=== PATIENT | female | born 1945 | race Caucasian/White ===

== ENCOUNTER 2017-06-05 12:05 | Inpatient (IN) | payer OTHER ==
[~2017-06-05] VITALS: Ht 182.9 cm; Wt 85.7 kg
[~2017-06-05 12:05] MED LIST: ADVIN25/60 INH; ASPEC81 PO; CYCL10TA6 PO; DSWCR TOP; LOSA50TA6 PO; LPT40 PO; METF1000 PO; METO-217 PO; MULT-506 PO; NTRGSL4 SL; OXYC1TAB3 PO; PLV75 PO; RANI300T2 PO; SERT1TAB68 PO; VNTHFA/IN INH
[2017-06-05] MEDS ORDERED: HYDR-5688 PO (12:21)
[2017-06-05] MEDS ORDERED: DULO-24 PO (12:21)
[2017-06-05] MEDS ORDERED: ACET-749 PO (12:21)
[2017-06-05] MEDS ORDERED: SODIUM CHLORIDE 0.9% 1000ML 500 ML IV STA (12:48)
[2017-06-05] MEDS ORDERED: ONDANSETRON INJ 2 MG/ML 2 ML VIAL IV STA (12:48)
[2017-06-05] MEDS ORDERED: MoRPHine SULFATE 4 MG/ML 1 ML CARP\\VIAL IV PRN (13:00)
[2017-06-05 13:30] LABS: BASO % 0.1 %; BASO ABS # 0.01 K/uL (0-0.2); COMPLETE YES; EOS % 0.1 %; HEMATOCRIT 37.2 % (37-47); IG% 0.4 %; LYMPH % 8.9 %; LYMPH ABS # 0.95 K/uL (1.2-3.4); MEAN CELL VOLUME 83.4 fL (80-100); MEAN CORPUSCULAR HEMOGLOBIN 27.4 pg (25-34); MEAN CORPUSCULAR HGB CONC 32.8 g/dl (32-36); MONO % 6.9 %; NEUT % 83.6 %; PLATELET COUNT 194 K/uL (130-400); RED BLOOD COUNT 4.46 M/uL (4.2-5.4); WHITE BLOOD COUNT 10.73 K/uL (4.8-10.8)
--- NOTE | 2017-06-05 13:33 | DIAGNOSTIC IMAGING REPORT ---
PELVIS 1 OR 2 VIEW ROUTINE CLINICAL HISTORY: 71 years-old Female presenting with poss fx or dislocation--h/o replacement. TECHNIQUE: Single frontal view the pelvis was obtained. COMPARISON: 04/25/2017. FINDINGS: Bilateral total hip arthroplasties unchanged. No hardware complication. No fracture. No malalignment. Pubic symphysis and sacroiliac joints congruent. No acute osseous injury of the bony pelvis. Degenerative changes of the lower lumbar spine. IMPRESSION: Postsurgical changes of bilateral total hip arthroplasty. No hardware complication. No acute osseous injury. Electronically signed by: Marshall Parker M.D. 06/05/2017 1:32 PM Dictated Date/Time: 06/05/2017 1:30 PM
--- NOTE | 2017-06-05 13:34 | DIAGNOSTIC IMAGING REPORT ---
L HIP UNILATERAL 2 VIEWS CLINICAL HISTORY: 71 years-old Female presenting with hip pain, hist or replacement. TECHNIQUE: Frontal and frog-leg lateral views of the left hip were obtained. COMPARISON: 04/25/2017. FINDINGS: Left total hip arthroplasty. No malalignment. No periprosthetic fracture. Ossification along the greater tuberosity possibly postsurgical heterotopic ossification or degenerative in etiology related to the gluteus muscle complex. No radiographic evidence of a soft tissue abnormality. IMPRESSION: Left total hip arthroplasty. No hardware complication. No acute osseous injury. Electronically signed by: Marshall Parker M.D. 06/05/2017 1:33 PM Dictated Date/Time: 06/05/2017 1:32 PM
[2017-06-05 13:47] LABS: BUN/CREATININE RATIO 12.5 (10-20); CALCIUM 9.2 mg/dl (8.5-10.1); CREATININE 1.19 mg/dl (0.60-1.20); POTASSIUM 3.8 mmol/L (3.5-5.1)
[2017-06-05 13:50] LABS: ALB/GLOB RATIO 0.8 (0.9-2)
--- NOTE | 2017-06-05 14:09 | EMERGENCY ROOM VISIT NOTE ---
History Report prepared by Jaida: Honey Toney Under the Supervision of: Dr. Erickson Nelson M.D. 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 She notes that she dislocated her left hip April 24, 2017. She notes the pain began around May 12, 2017. She has seen her PCP and an orthopedic physician. She has a history of bilateral total hip replacements, though she notes that her left hip has dislocation several times s/p surgery. She reports the pain is in her left groin, which occasionally radiates below her left knee. 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 She currently rates her pain a 6/ 10 in severity. She notes a history of chronic back pain. She denies any falls. She has been taking her pain medication as prescribed though she notes her symptoms have not been relieved. She denies any history of lumbar hardware. She notes a history of vertebral disc surgery, though she is unsure of the details. She has a history of diabetes and CAD. She had a cardiac stent in 2016 and is currently taking blood thinners. 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 She notes left groin pain, radiating to below left knee. She denies any falls. Review of Systems See HPI for pertinent positives & negatives. A total of 10 systems reviewed and were otherwise negative. Past Medical & Surgical Medical Problems: (1) Allergic rhinitis (2) Anxiety (3) Arthritis of right hip (4) Asthma (5) CAD (coronary artery disease) (6) CKD (chronic kidney disease), stage III (7) DM type 2 (diabetes mellitus, type 2) (8) Dyslipidemia (9) Hip dislocation, left (10) HTN (hypertension) (11) Restless leg syndrome (12) UTI (urinary tract infection) Surgical Problems: (1) History of cardiac cath (2) S/p lumbar hemilaminectomy (3) S/P nasal septoplasty (4) S/p repair of radial fracture (5) Status post bilateral total hip replacement Family History Diabetes mellitus FATHER MOTHER BROTHER SISTER FH: HTN (hypertension) FH: cancer FH: heart disease BROTHER FH: kidney disease Social History Smoking Status: Former Smoker Alcohol Use: occasionally Drug Use: none Marital Status: Housing Status: lives with family Occupation Status: retired Current/Historical Medications Scheduled Aspirin (Aspirin EC Low Dose), 81 MG PO QAM Atorvastatin (Atorvastatin Calcium), 40 MG PO DAILY Clopidogrel Bisulfate (Clopidogrel), 75 MG PO QAM Duloxetine Hcl (Cymbalta), 20 MG PO DAILY Fluticasone Prop/Salmeterol (Advair Diskus 250/50 60 Dose), 1 PUFFS INH BID Losartan Potassium (Cozaar), 50 MG PO QAM Metformin Hcl (Glucophage), 1,000 MG PO QAM Metoprolol Succinate (Toprol Xl), 50 MG PO DAILY Multivitamin (Multivitamin), 1 TAB PO QAM Ranitidine Hcl (Zantac), 300 MG PO HS Scheduled PRN Acetaminophen/Codeine (Tylenol W/Codeine #3), 2 TAB PO Q4 PRN for Pain Albuterol Hfa (Ventolin Hfa), 2 PUFFS INH Q6H PRN for Cough Cyclobenzaprine Hcl (Flexeril), 10 MG PO TID PRN for muscle spasm Desonide 0.05% (Desowen 0.05%), 1 APPLN TOP DAILY PRN for RN Hydrocodone/Acetaminophen 5MG/325MG ([place]rington 5MG/325MG), 1 TABLET PO Q6 PRN for Pain Nitroglycerin (Nitrostat), 0.4 MG SL q5min PRN for Chest Pain Allergies Coded Allergies: Grass (Verified Allergy, Unknown, GRASS TREES, SOB AGGREVATES ASTHMA, ) Latex (Verified Allergy, Unknown, ITCHING FROM LATEX BALLOON PLACED IN NOSE FROM NOSEBLEED, 06/05/17) Atorvastatin (Unverified Adverse Reaction, Mild, JOINT AND MUSCLE ACHES, 06/05/17) Naloxone (Verified Adverse Reaction, Unknown, DIZZINESS, 06/05/17) Pentazocine (Unverified Adverse Reaction, Unknown, DIZZINESS, 06/05/17) Pioglitazone (Verified Adverse Reaction, Unknown, RAPID WEIGHT GAIN, 06/05) Physical Exam Vital Signs Date Time Temp Pulse Resp B/P (MAP) Pulse Ox O2 Delivery O2 Flow Rate FiO2 06/05/17 17:48 39.5 110 16 139/66 92 Room Air 06/05/17 16:51 38.6 10 16 128/62 97 Room Air 06/05/17 15:54 37.8 98 16 127/66 95 Room Air 06/05/17 15:25 06/05/17 13:55 93 20 116/78 96 Room Air 06/05/17 12:14 37.0 60 20 131/81 97 Room Air Physical Exam GENERAL: Patient is in mild distress secondary to pain. HEENT: No acute trauma, normocephalic atraumatic, mucous membranes moist, no nasal congestion, no scleral icterus. NECK: No stridor, no adenopathy, no meningismus, trachea is midline. LUNGS: Clear to auscultation bilaterally, no wheeze, no rhonchi, breath sounds equal. HEART: Without murmurs gallops or rubs, regular rate and rhythm. ABDOMEN: Soft, nontender, bowel sounds positive, no hernias, no peritonitis. BACK: Tender over the left SI region. No midline bony tenderness or step-offs. EXTREMITIES: No cyanosis or edema, full range of motion of all the joints without pain or difficulty, no signs for acute trauma. No dislocation to LLE. NEUROLOGIC: Oriented x 3, no acute motor or sensory deficits, no focal weakness. SKIN: No rash, no jaundice, no diaphoresis. Medical Decision & Procedures ER Provider Diagnostic Interpretation: Radiology results as stated below per my review and radiologist interpretation: PELVIS 1 OR 2 VIEW ROUTINE CLINICAL HISTORY: 71 years-old Female presenting with poss fx or dislocation--h/o replacement. TECHNIQUE: Single frontal view the pelvis was obtained. COMPARISON: 04/25/2017. FINDINGS: Bilateral total hip arthroplasties unchanged. No hardware complication. No fracture. No malalignment. Pubic symphysis and sacroiliac joints congruent. No acute osseous injury of the bony pelvis. Degenerative changes of the lower lumbar spine. IMPRESSION: Postsurgical changes of bilateral total hip arthroplasty. No hardware complication. No acute osseous injury. Electronically signed by: Marshall Parker M.D. 06/05/2017 1:32 PM Dictated Date/Time: 06/05/2017 1:30 PM L HIP UNILATERAL 2 VIEWS CLINICAL HISTORY: 71 years-old Female presenting with hip pain, hist or replacement. TECHNIQUE: Frontal and frog-leg lateral views of the left hip were obtained. COMPARISON: 04/25/2017. FINDINGS: Left total hip arthroplasty. No malalignment. No periprosthetic fracture. Ossification along the greater tuberosity possibly postsurgical heterotopic ossification or degenerative in etiology related to the gluteus muscle complex. No radiographic evidence of a soft tissue abnormality. IMPRESSION: Left total hip arthroplasty. No hardware complication. No acute osseous injury. Electronically signed by: Marshall Parker M.D. 06/05/2017 1:33 PM Dictated Date/Time: 06/05/2017 1:32 PM LUMBAR SPINE COMBINATION CLINICAL HISTORY: 71 years-old Female presenting with left leg and back pain, numbness from the groin to the knee, throbbing pain down the center of the thigh to the knee, also sacral and hip pain greater on the left. TECHNIQUE: Multisequence, multiplanar MR imaging of the lumbar spine was performed before and after the administration of intravenous contrast. IV contrast: 8.4 mL of Gadavist. COMPARISON: Correlation made to plain radiograph of the pelvis performed earlier the same day. FINDINGS: Localizer images: Enlarged spleen. Normal lumbar lordosis. Fatty endplate changes at L4-5 (Modic type II). Vertebral bodies otherwise maintain normal alignment and bone marrow signal intensity. Mild posterior vertebral body height loss of L5 with the remainder of the vertebral bodies demonstrate normal height. Intervertebral disc height loss at L4-5. Disc desiccation at L3-4. Annular fissure suspected at L5-S1. Additional multilevel degenerative changes detailed below: L1 to: No significant neural foraminal or spinal canal narrowing. L2-3: No significant neural foraminal or spinal canal narrowing. L3-4: Disc bulge results in effacement of the anterior thecal sac and bilateral neural foramina as well as eccentrically effacing the far lateral left neural foramen. In combination with facet arthropathy and ligamentum flavum thickening, circumferential narrowing of the thecal sac with near complete effacement of CSF noted. Mild right and moderate to severe left neural foraminal narrowing. Suspected mass effect on the exiting left L3 nerve root. Mass effect on the transiting bilateral L4 nerve roots may also be present. Additionally, there is exophytic masslike extension from the exiting left L3 nerve root, which appears to be in continuity with the nerve emanating from it at the level of the neural foramen. This demonstrates enhancement on postcontrast imaging. The extradural mass measures 12 x 7 mm in greatest axial dimension and 14 mm in greatest craniocaudal dimension (series 10 image 13 and series 3 image 11). This may be centrally nonenhancing. L4-5: Disc bulge, facet arthropathy, and ligamentum flavum thickening do not result in significant spinal canal stenosis. However, moderate bilateral neural foraminal narrowing results. L5-S1: Facet arthropathy results in mild bilateral neural foraminal narrowing. No significant spinal canal narrowing. Few Tarlov cysts noted in the sacrum. Spinal cord ends in good position at L1. Cauda equina normal in morphology apart from crowding at the level of L3-4. No paraspinal edema or inflammatory change. No abnormal enhancement of the spinal cord or nerve roots on postcontrast imaging. Paraspinal soft tissues demonstrate urothelial thickening and hyperenhancement of the bilateral collecting systems and ureters, greater on the right with right periureteral fat stranding. IMPRESSION: 1. Apparent enhancing mass emanates from the exiting left L3 nerve root with central cystic change. This could suggest a schwannoma or other peripheral nerve sheath tumor. 2. Multilevel degenerative changes most severe at L3-4, where there is a greatest degree of spinal canal stenosis as well as moderate to severe left neural foraminal narrowing. Additional degenerative changes as above. 3. Apparent urothelial thickening, periureteral inflammatory change, and enhancement involving the right renal collecting system and right ureter to a greater degree than the left. Trace raises concern for upper tract infection. Correlate with urinalysis. Electronically signed by: Marshall Parker M.D. 06/05/2017 3:53 PM Dictated Date/Time: 06/05/2017 3:43 PM Laboratory Results 06/05/17 13:00 Red Blood Count 4.46, Mean Corpuscular Volume 83.4, Mean Corpuscular Hemoglobin 27.4, Mean Corpuscular Hemoglobin Concent 32.8, Mean Platelet Volume 10.0, Neutrophils (%) (Auto) 83.6, Lymphocytes (%) (Auto) 8.9, Monocytes (%) (Auto) 6.9, Eosinophils (%) (Auto) 0.1, Basophils (%) (Auto) 0.1, Neutrophils # (Auto) 8.98, Lymphocytes # (Auto) 0.95, Monocytes # (Auto) 0.74, Eosinophils # (Auto) 0.01, Basophils # (Auto) 0.01 06/05/17 13:00 Test 06/05/17 13:00 06/05/17 13:32 White Blood Count 10.73 K/uL (4.8-10.8) Red Blood Count 4.46 M/uL (4.2-5.4) Hemoglobin 12.2 g/dL (12.0-16.0) Hematocrit 37.2 % (37-47) Mean Corpuscular Volume 83.4 fL (80-100) Mean Corpuscular Hemoglobin 27.4 pg (25-34) Mean Corpuscular Hemoglobin Concent 32.8 g/dl (32-36) Platelet Count 194 K/uL (130-400) Mean Platelet Volume 10.0 fL (7.4-10.4) Neutrophils (%) (Auto) 83.6 % Lymphocytes (%) (Auto) 8.9 % Monocytes (%) (Auto) 6.9 % Eosinophils (%) (Auto) 0.1 % Basophils (%) (Auto) 0.1 % Neutrophils # (Auto) 8.98 K/uL (1.4-6.5) Lymphocytes # (Auto) 0.95 K/uL (1.2-3.4) Monocytes # (Auto) 0.74 K/uL (0.11-0.59) Eosinophils # (Auto) 0.01 K/uL (0-0.5) Basophils # (Auto) 0.01 K/uL (0-0.2) RDW Standard Deviation 41.6 fL (36.4-46.3) RDW Coefficient of Variation 13.8 % (11.5-14.5) Immature Granulocyte % (Auto) 0.4 % Immature Granulocyte # (Auto) 0.04 K/uL (0.00-0.02) Anion Gap 11.0 mmol/L (3-11) Est Creatinine Clear Calc Drug Dose 50.8 ml/min Estimated GFR () 53.6 Estimated GFR (Non- 46.2 BUN/Creatinine Ratio 12.5 (10-20) Calcium Level 9.2 mg/dl (8.5-10.1) Total Bilirubin 0.7 mg/dl (0.2-1) Aspartate Amino Transf (AST/SGOT) 8 U/L (15-37) Alanine Aminotransferase (ALT/SGPT) 18 U/L (12-78) Alkaline Phosphatase 88 U/L (45-117) Total Protein 7.9 gm/dl (6.4-8.2) Albumin 3.4 gm/dl (3.4-5.0) Globulin 4.5 gm/dl (2.5-4.0) Albumin/Globulin Ratio 0.8 (0.9-2) Urine Color YELLOW Urine Appearance CLOUDY (CLEAR) Urine pH 5.0 (4.5-7.5) Urine Specific [place] 1.014 (1.000-1.030) Urine Protein 1+ (NEG) Urine Glucose (UA) 2+ (NEG) Urine Ketones NEG (NEG) Urine Occult Blood 2+ (NEG) Urine Nitrite NEG (NEG) Urine Bilirubin NEG (NEG) Urine Urobilinogen NEG (NEG) Urine Leukocyte Esterase LARGE (NEG) Urine WBC (Auto) >30 /hpf (0-5) Urine RBC (Auto) 0-4 /hpf (0-4) Urine Hyaline Casts (Auto) 1-5 /lpf (0-5) Urine Epithelial Cells (Auto) 0-5 /lpf (0-5) Urine Bacteria (Auto) 4+ (NEG) Laboratory results reviewed by me. Medications Administered Medications (Trade) Dose Ordered Sig/Duong Route Start Time Stop Time Status Last Admin Dose Admin Sodium Chloride 500 ml @ 999 mls/hr Q31M STAT IV 06/05/17 12:48 06/05/17 13:18 DC 06/05/17 13:14 999 MLS/HR Ondansetron HCl (Zofran Inj) 4 mg NOW STAT IV 06/05/17 12:48 06/05/17 12:52 DC 06/05/17 13:14 4 MG Morphine Sulfate (MoRPHine SULFATE INJ) 4 mg Q30M PRN IV 06/05/17 13:00 06/19/17 12:59 06/05/17 13:14 4 MG Ceftriaxone Sodium (Rocephin Inj) 1 gm NOW STAT IV 06/05/17 14:38 06/05/17 14:39 DC 06/05/17 15:41 1 GM Acetaminophen (Tylenol Tab) 1,000 mg NOW STAT PO 06/05/17 16:52 06/05/17 16:53 DC 06/05/17 16:58 1,000 MG ED Course 1243: The patient was evaluated in room A2. A complete history and physical exam was performed. 1248: Ordered Zofran 4 mg IV and NSS 500 ml @ 999 mls/hr 1500: Ordered Morphine Sulfate 4 mg IV 1438: Ordered Rocephin 1 gm IV 1600: I reassessed the patient at this time. I discussed the results and treatment plan with the patient. I answered all pertaining questions that she had. She expressed understanding and verbalized agreement. 1643: I spoke with Dr. Juárez, orthopedic surgeon. We discussed the patients case. The patient will be further evaluated. 1653: Ordered Tylenol 1,000 mg PO 1658: I spoke with Dr. Ramos, hospitalist. We discussed the patients case. The patient will be evaluated by the [facility] for further management. 1730: I reassessed the patient at this time. She is feeling better and resting comfortably. I informed the patient that orthopedics will consult with her regarding her case. Medical Decision The patient is a 71 year old female who presents to the ED with complaints of persistent left hip pain. Differential diagnoses considered include lumbar disk disease, herniated disease, nerve impression, sciatica, malignancy, left hip fracture, pelvic fracture, and UTI. There is no leukocytosis or concerning anemia. No significant electrolyte abnormality, kidney failure or hepatitis. Urinalysis does show evidence for infection. Urine culture is pending. Lumbar MRI shows evidence for a lesion at the L3-L4 space on the left, I suspect this area of fullness is causing her pain down the left leg. MRI also suggested a possible pyelonephritis on the right. Left hip and pelvis films do not show fracture or bony dislocation. The patient received IV morphine, IV Zofran, IV saline. She was given IV ceftriaxone for the presumed UTI/pyelonephritis. She received oral Tylenol as she developed a fever, she was also given some oral Motrin. The patient's pain is better controlled, she seems to be resting comfortably. I discussed her case with the on-call spinal surgeon. Admission/observation was recommended. Given the findings of the lesion on MRI, given the urinary infection, admission/ observation is warranted. I spoke to the patient and the correctional case manager. The on- call hospitalist was consulted. Medication Reconcilliation Current Medication List: was personally reviewed by me Blood Pressure Screening Patient's blood pressure: Elevated blood pressure Blood pressure disposition: Elevated BP felt to be situational Consults Time Called: 1603 Consulting Physician: Dr. Juárez, orthopedic surgeon Returned Call: [phone]: I spoke with Dr. Juárez, orthopedic surgeon. We discussed the patients case. The patient will be further evaluated. Additional Consults: Time Called: 1647 Consulted Physician: [facility] Returned Call: [phone] Additional Comments: I spoke with allie Malave. We discussed the patients case. The patient will be evaluated by the [facility] for further management Impression Primary Impression: Abnormal MRI, lumbar spine Additional Impressions: Left leg numbness Left leg pain UTI (urinary tract infection) Scribe Attestation The scribe's documentation has been prepared under my direction and personally reviewed by me in its entirety. I confirm that the note above accurately reflects all work, treatment, procedures, and medical decision making performed by me. Departure Information Dispostion Being Evaluated By Hospitalist Referrals Rafiq Mckeon M.D.([facility]) (PCP) Patient Instructions My [facility] Problem Qualifiers
[2017-06-05 14:24] LABS: URINE APPEARANCE CLOUDY (CLEAR); URINE BILIRUBIN NEG (NEG); URINE COLOR YELLOW; URINE EPITHELIAL CELL AUTO 0-5 /lpf (0-5); URINE NITRITE NEG (NEG); URINE SPECIFIC GRAVITY 1.014 (1.000-1.030); UROBILINOGEN NEG (NEG); ZZUR CULT IF INDIC CLEAN CATCH YES
[2017-06-05 14:33] LABS: MANUAL MICROSCOPIC REQUIRED? NO; REVIEW REQ? NO
[2017-06-05] MEDS ORDERED: CEFTRIAXONE SOD INJ 1 GM ADDVIAL IV STA (14:38)
[2017-06-05] MEDS ORDERED: GADAVIST IV PRN (15:10)
--- NOTE | 2017-06-05 15:55 | DIAGNOSTIC IMAGING REPORT ---
LUMBAR SPINE COMBINATION CLINICAL HISTORY: 71 years-old Female presenting with left leg and back pain, numbness from the groin to the knee, throbbing pain down the center of the thigh to the knee, also sacral and hip pain greater on the left. TECHNIQUE: Multisequence, multiplanar MR imaging of the lumbar spine was performed before and after the administration of intravenous contrast. IV contrast: 8.4 mL of Gadavist. COMPARISON: Correlation made to plain radiograph of the pelvis performed earlier the same day. FINDINGS: Localizer images: Enlarged spleen. Normal lumbar lordosis. Fatty endplate changes at L4-5 (Modic type II). Vertebral bodies otherwise maintain normal alignment and bone marrow signal intensity. Mild posterior vertebral body height loss of L5 with the remainder of the vertebral bodies demonstrate normal height. Intervertebral disc height loss at L4-5. Disc desiccation at L3-4. Annular fissure suspected at L5-S1. Additional multilevel degenerative changes detailed below: L1 to: No significant neural foraminal or spinal canal narrowing. L2-3: No significant neural foraminal or spinal canal narrowing. L3-4: Disc bulge results in effacement of the anterior thecal sac and bilateral neural foramina as well as eccentrically effacing the far lateral left neural foramen. In combination with facet arthropathy and ligamentum flavum thickening, circumferential narrowing of the thecal sac with near complete effacement of CSF noted. Mild right and moderate to severe left neural foraminal narrowing. Suspected mass effect on the exiting left L3 nerve root. Mass effect on the transiting bilateral L4 nerve roots may also be present. Additionally, there is exophytic masslike extension from the exiting left L3 nerve root, which appears to be in continuity with the nerve emanating from it at the level of the neural foramen. This demonstrates enhancement on postcontrast imaging. The extradural mass measures 12 x 7 mm in greatest axial dimension and 14 mm in greatest craniocaudal dimension (series 10 image 13 and series 3 image 11). This may be centrally nonenhancing. L4-5: Disc bulge, facet arthropathy, and ligamentum flavum thickening do not result in significant spinal canal stenosis. However, moderate bilateral neural foraminal narrowing results. L5-S1: Facet arthropathy results in mild bilateral neural foraminal narrowing. No significant spinal canal narrowing. Few Tarlov cysts noted in the sacrum. Spinal cord ends in good position at L1. Cauda equina normal in morphology apart from crowding at the level of L3-4. No paraspinal edema or inflammatory change. No abnormal enhancement of the spinal cord or nerve roots on postcontrast imaging. Paraspinal soft tissues demonstrate urothelial thickening and hyperenhancement of the bilateral collecting systems and ureters, greater on the right with right periureteral fat stranding. IMPRESSION: 1. Apparent enhancing mass emanates from the exiting left L3 nerve root with central cystic change. This could suggest a schwannoma or other peripheral nerve sheath tumor. 2. Multilevel degenerative changes most severe at L3-4, where there is a greatest degree of spinal canal stenosis as well as moderate to severe left neural foraminal narrowing. Additional degenerative changes as above. 3. Apparent urothelial thickening, periureteral inflammatory change, and enhancement involving the right renal collecting system and right ureter to a greater degree than the left. Trace raises concern for upper tract infection. Correlate with urinalysis. Electronically signed by: Marshall Parker M.D. 06/05/2017 3:53 PM Dictated Date/Time: 06/05/2017 3:43 PM
[2017-06-05] MEDS ORDERED: ACETAMINOPHEN 500 MG TAB PO STA (16:52)
[2017-06-05] MEDS ORDERED: HYDROCODONE/ACETAMOPHEN 5/325MG TAB PO PRN (17:30)
[2017-06-05] MEDS ORDERED: ALUMINUM/MAGNESIUM/SIMETH (MAALOX MAX) 30 ML UDC PO PRN (17:30)
[2017-06-05] MEDS ORDERED: DESONIDE CR 15 GM TUBE EXT PRN (17:30)
[2017-06-05] MEDS ORDERED: CYCLOBENZAPRINE HCL 10 MG TAB PO PRN (17:30)
[2017-06-05] MEDS ORDERED: ALBUTEROL HFA 8 GM INHALER INH PRN (17:30)
[2017-06-05] MEDS ORDERED: CEFEPIME IV 2,000 MG in DEXTROSE 5% 100ML 100 ML IV SCH (17:30)
[2017-06-05] MEDS ORDERED: ACETAMINOPHEN 325 MG TAB PO PRN (17:30)
[2017-06-05] MEDS ORDERED: HYDROmorphone INJ 0.5 MG/0.5 ML SYR IV PRN (17:30)
[2017-06-05] MEDS ORDERED: IBUPROFEN 600 MG TAB PO STA (18:04)
[2017-06-05 18:30] VITALS: BP 103/69; PULSE 118; TEMP 36.9; O2SAT 94; Ht 182.9 cm; Wt 85.7 kg
--- NOTE | 2017-06-05 19:15 | HISTORY & PHYSICAL EXAMINATION ---
DATE OF ADMISSION: 06/05/2017 CHIEF COMPLAINT: Left leg pain. HISTORY OF PRESENT ILLNESS: This is a 71-year-old female with past medical history significant for CAD status post stent, hypertension, chronic kidney disease stage III, diabetes, hyperlipidemia, asthma mild persistent, paroxysmal supraventricular tachycardia, restless leg syndrome, GERD, anxiety, allergic rhinitis, comes in because of ongoing pain in left lower extremity and also today she was having chills. The patient says she had surgery of left hip replacement in 2014 and right hip replacement in August 2015. Since surgery, left hip is always bothering her. She is having pain shooting from the left hip to her knee, is getting worse and is having difficulty ambulating and is also not sleeping because of pain and this year she dislocated her left hip twice and it was replaced back in the [facility] ER. Because of the ongoing problem with left lower extremity and having chills today, she came to the ER. In the ER, she was found to have a UTI and also had slight temp spike and also MRI of the lumbar spine was done which showed apparent mass exiting from the L3 nerve root and we were called for admission. Currently, the patient is shivering with cold. Blood pressure is stable, slightly tachycardic. She has some headache, no dizziness, no blurred vision. Denies cough, no runny nose. No sore throat, no difficulty swallowing. No chest pain, no shortness of breath, no nausea, no vomiting, no abdominal pain. Normal bowel and bladder movements. No blood in the stool and no black stools, no blood in the urine, no burning micturition. Denies any rash, no swelling in the extremities. No recent weight gain or weight loss. Appetite is okay. ALLERGIES: ACTOSE, BACTRIM, LATEX, LIPITOR, TALWIN. PAST MEDICAL HISTORY: As mentioned above. PAST SURGICAL HISTORY: Cardiac catheterization, status post stent placement, distal radial fracture correction surgery, lumbar hemilaminectomy [id number], repair of the nasal septum, bilateral total hip replacements. MEDICATIONS: The patient is on Dulcolax 20 mg p.o. daily, hydrocodone/acetaminophen 5/325 mg one tablet every 6 hours p.r.n., Zantac 300 mg p.o. at bedtime, Tylenol #3 1-2 tablets every 4 hours p.r.n., Plavix 75 mg p.o. daily, Lipitor 40 mg p.o. at bedtime, Cozaar 50 mg p.o. daily, metformin 1000 mg p.o. daily, Toprol-XL 1 tablet p.o. daily, Flexeril 10 mg p.o. t.i.d. p.r.n., Advair Diskus 250/50 one puff b.i.d. Ventolin HFA 2 puffs every 6 hours, aspirin 81 mg p.o. daily, multivitamins 1 tablet p.o. daily. FAMILY HISTORY: Significant for father has diabetes. Brother has diabetes and heart disorder. Father has diabetes. Mother has diabetes. Sister has diabetes. SOCIAL HISTORY: , lives with her . Former smoker, quit in 1989. Prior to that smoked 1.5 packs a day for 26 years. Alcohol rarely. No drug use. REVIEW OF SYMPTOMS: As per HPI. Rest of review of symptoms negative. PHYSICAL EXAMINATION: GENERAL: The patient is of moderately obese and not in distress. VITAL SIGNS: Temperature T-max 38.6, pulse 98, respiratory rate 16, blood pressure 127/66, oxygen 95% on room air. HEENT: No pallor, no icterus. Pupils equal, round, and react to light. NECK: No JVD, no neck masses, no carotid bruits. CARDIOVASCULAR: S1, S2 heard. Tachycardia. No murmurs. RESPIRATORY SYSTEM: Clear to auscultation bilaterally. No accessory muscle use. No wheezing, no crackles. ABDOMEN: Soft, bowel sounds present, nontender. No distention. No CVA tenderness. MUSCULOSKELETAL: No spinal tenderness. CENTRAL NERVOUS SYSTEM: Cranial nerves II-XII grossly intact. Nonfocal. EXTREMITIES: No edema, no erythema. LABORATORY DATA: Sodium 132, potassium 3.8, chloride 97, bicarbonate 24, BUN 15, creatinine 1.1, serum glucose 295, calcium 9.2, total bilirubin 0.7, AST 8, ALT 18, alkaline phosphatase 88, total protein 7.9, WBC 10.7, hemoglobin 12.2, hematocrit 37.2, platelets 194. Urinalysis positive for leukocyte esterase. Hip x-ray, left total hip arthroplasty, no hardware complication. No acute osseous injury. Pelvic x-ray, post-surgical changes of bilateral total hip arthroplasty, no hardware complications. No acute osseous injury. Lumbar spine MRI, apparent enhancing mass emanates from the exiting left L3 nerve root with central cystic change, this could suggest as schwannoma or peripheral nerve sheath tumor, multilevel degenerative changes most severe at L3-L4 where there is a greatest degree of spinal canal stenosis as well as moderate to severe left neural foraminal narrowing, possible UTI. ASSESSMENT AND PLAN: This is a 71-year-old female who presents with possible early sepsis from UTI and left leg pain and numbness. 1. Possible early sepsis with temperature spike, tachycardia, shivering chills and positive urinalysis possible urinary tract infection. We will place on IV normal saline at 125 mL per hour. We will continue on IV cefepime, IV vancomycin until cultures are available. Close monitor. 2. Lumbar spine mass at L3 level on left side on MRI, possible schwannoma or nerve sheath tumor. Possible cause of her left lower extremity numbness in the medial side and pain. ER physician discussed with back surgery and advised to admit and followup. We will consult back surgery, Dr. Juárez. Also having severe degenerative disease in his lumbar spine, control pain with IV Dilaudid, await ortho recommendations. 3. Coronary artery disease status post stent. Continue home medications of Toprol-XL with holding parameters, aspirin, Plavix and statin. 4. Diabetes. Hold metformin, place on Lantus insulin sliding scale. Follow hemoglobin A1c level. Monitor blood sugar while in the hospital. 5. Hypertension. Continue losartan, Toprol-XL with hold parameters. 6. History of asthma, mild persistent, currently stable. Continue Advair Diskus and Ventolin p.r.n. 7. Chronic kidney disease stage III. We will follow the labs. 8. Hyperlipidemia, on statin. 9. Deep venous thrombosis prophylaxis, Lovenox. 10. Disposition: Admit to medical floor. Expect to discharge home and follow with the family doctor. Level 1 full code. MTDD
[2017-06-05] MEDS ORDERED: GLUCOSE 40% GEL 15 GM TUBE PO PRN (20:30)
[2017-06-05] MEDS ORDERED: GLUCOSE 10 TABS/TUBE PO PRN (20:30)
[2017-06-05] MEDS ORDERED: GLUCAGON FOR INJ 1 MG VIAL SQ PRN (20:30)
[2017-06-05] MEDS ORDERED: DEXTROSE 50% 50 ML SYR IV PRN (20:30)
[2017-06-05] MEDS: SODIUM CHLORIDE 0.9% 1000ML 1,000 ML IV SCH (20:56)
[2017-06-05] MEDS ORDERED: INSULIN GLARGINE SOLOSTAR 100 UNITS/ML 3 ML PEN SC SCH ×2 (21:00)
[2017-06-05] MEDS ORDERED: CEFEPIME CONSULT ACTIVE PRN ×2 (21:15)
[2017-06-05] MEDS ORDERED: VANCOMYCIN CONSULT ACTIVE PRN (21:15)
[2017-06-05 21:18] LABS: PARTIAL THROMBOPLASTIN RATIO 1.2
[2017-06-05] MEDS: INSULIN ASPART 100 UNITS/ML 3 ML PEN SC SCH (21:25)
[2017-06-05] MEDS: FLUTICASONE/SALMETEROL 250/50 (ADVAIR) 14 PUFF/1 INHALER INH SCH (21:27)
[2017-06-05] MEDS: CEFEPIME IV 2,000 MG in SYRINGE 7.5 ML IV SCH (21:28)
[2017-06-05] MEDS: RANITIDINE HCL 150 MG TAB PO SCH (21:29)
[2017-06-05] MEDS ORDERED: VANCOMYCIN INJ 2,000 MG in SODIUM CHLORIDE 0.9% 500ML 500 ML IV SCH (22:00)
[2017-06-05 22:31] VITALS: TEMP 36.7
--- NOTE | 2017-06-05 22:54 | Pharmacy Progress Note ---
Pharmacy Abx Initial Consult Date of Service Jun 05, 2017. Pharmacy Dosing Scope Date of Consult: 06/05/17 Consultation requested by: Dr. Ramos Pharmacy is consulted to initiate IV Cefepime/Vancomycin dosing therapy, order appropriate labs and adjust drug dose/frequency. Subjective The patient is a 71 year old female admitted on Jun 05, 2017 at 17:27. Objective Height (Feet): 6 Height (Inches): 0 Weight (Kilograms): 87.730 Vital Signs (Past 12Hrs) Vital Signs Past 12 Hours Date Time Temp Pulse Resp B/P (MAP) Pulse Ox O2 Delivery O2 Flow Rate FiO2 06/05/17 18:01 39.5 110 16 139/66 92 06/05/17 17:48 39.5 110 16 139/66 92 Room Air 06/05/17 16:51 38.6 10 16 128/62 97 Room Air 06/05/17 15:54 37.8 98 16 127/66 95 Room Air 06/05/17 15:25 06/05/17 13:55 93 20 116/78 96 Room Air 06/05/17 12:14 37.0 60 20 131/81 97 Room Air Lab Results (24Hrs) Laboratory Tests (24 Hours) Item Value Date Time Creatinine 1.19 mg/dl 06/05/17 1300 Est Creatinine Clear Calc Drug Dose 50.8 ml/min 06/05/17 1300 Test 06/05/17 13:00 White Blood Count 10.73 K/uL (4.8-10.8) Red Blood Count 4.46 M/uL (4.2-5.4) Hemoglobin 12.2 g/dL (12.0-16.0) Hematocrit 37.2 % (37-47) Mean Corpuscular Volume 83.4 fL (80-100) Mean Corpuscular Hemoglobin 27.4 pg (25-34) Mean Corpuscular Hemoglobin Concent 32.8 g/dl (32-36) Platelet Count 194 K/uL (130-400) Mean Platelet Volume 10.0 fL (7.4-10.4) Neutrophils (%) (Auto) 83.6 % Lymphocytes (%) (Auto) 8.9 % Monocytes (%) (Auto) 6.9 % Eosinophils (%) (Auto) 0.1 % Basophils (%) (Auto) 0.1 % Neutrophils # (Auto) 8.98 K/uL (1.4-6.5) H Lymphocytes # (Auto) 0.95 K/uL (1.2-3.4) L Monocytes # (Auto) 0.74 K/uL (0.11-0.59) H Eosinophils # (Auto) 0.01 K/uL (0-0.5) Basophils # (Auto) 0.01 K/uL (0-0.2) Micro Results Date/Time Source Procedure Growth Status 06/05/17 13:32 Urine , Clean Catch Urine Culture Pending Received Assessment & Plan Assessment 71 year old female presenting to ER today due to ongoing pain in LLE now experiencing fever/chills Plan IV Cefepime & Vancomycin for treatment of complicated UTI/early sepsis Vancomycin IV * Loading dose: Vancomycin 2000mg IV x 1 dose (22.8mg/kg) * Maintenance dose: Vancomycin 1250mg IV q12h (14.2mg/kg) * Goal trough level for sepsis: 15-20mcg/mL * Trough level ordered for: 06/07/17 w/ 1000 dose Cefepime IV * Indicated dose: Cefepime 2gm IV q8h * Dosing interval adjusted to q12h for CrCl 30-60ml/min Pharmacy will continue to follow and will adjust dose/frequency as necessary. Thank you.
[2017-06-05 23:14] VITALS: BP 100/58; PULSE 81; TEMP 36.6; O2SAT 93
[2017-06-06] VITALS (8 sets, daily range): BP systolic 95–136; BP diastolic 51–72; PULSE 75–96; TEMP 36.5–38.3; O2SAT 91–98
[2017-06-06] MEDS: ENOXAPARIN 40 MG/0.4 ML SYR SQ SCH ×2 (00:03→20:58)
[2017-06-06] MEDS: ACETAMINOPHEN/CODEINE 300/30MG TAB PO PRN (04:50)
[2017-06-06 06:19] LABS: BASO % 0.2 %; BASO ABS # 0.02 K/uL (0-0.2); COMPLETE YES; EOS % 0.3 %; HEMATOCRIT 33.7 % (37-47); IG% 0.2 %; LYMPH ABS # 1.19 K/uL (1.2-3.4); MEAN CELL VOLUME 83.4 fL (80-100); MEAN CORPUSCULAR HGB CONC 32.3 g/dl (32-36); MEAN PLATELET VOLUME 9.5 fL (7.4-10.4); MONO % 8.3 %; PLATELET COUNT 162 K/uL (130-400); RED BLOOD COUNT 4.04 M/uL (4.2-5.4); WHITE BLOOD COUNT 11.85 K/uL (4.8-10.8)
[2017-06-06 06:50] LABS: BUN/CREATININE RATIO 15.3 (10-20); CREATININE 1.08 mg/dl (0.60-1.20); MAGNESIUM 1.6 mg/dl (1.8-2.4); POTASSIUM 3.8 mmol/L (3.5-5.1)
[2017-06-06 07:09] LABS: ESTIMATED AVERAGE GLUCOSE 171 mg/dl; HA1C FLAG Normal (Normal)
[2017-06-06] MEDS: SODIUM CHLORIDE 0.9% 1000ML 1,000 ML IV SCH ×3 (07:33→20:00)
[2017-06-06] MEDS: INSULIN ASPART 100 UNITS/ML 3 ML PEN SC SCH ×4 (09:10→21:00)
[2017-06-06] MEDS: FLUTICASONE/SALMETEROL 250/50 (ADVAIR) 14 PUFF/1 INHALER INH SCH ×2 (09:11→20:58)
[2017-06-06] MEDS: ASPIRIN 81 MG ECTAB PO SCH (09:12)
[2017-06-06] MEDS: DULOXETINE HCL 20 MG CAP PO SCH (09:12)
[2017-06-06] MEDS: LOSARTAN POTASSIUM 50 MG TAB PO SCH (09:12)
[2017-06-06] MEDS: METOPROLOL SUCC 50MG EXT REL TAB PO SCH (09:13)
[2017-06-06] MEDS: CLOPIDOGREL BISULFATE 75 MG TAB PO SCH (09:13)
[2017-06-06] MEDS: MULTIVITAMIN TAB PO SCH (09:13)
[2017-06-06] MEDS: ATORVASTATIN 40 MG TAB PO SCH (09:14)
[2017-06-06] MEDS: VANCOMYCIN INJ 1,250 MG in SODIUM CHLORIDE 0.9% 250ML 250 ML IV SCH ×2 (09:59→21:56)
[2017-06-06] MEDS: CEFEPIME IV 2,000 MG in SYRINGE 7.5 ML IV SCH ×2 (10:38→20:58)
[2017-06-06] MEDS: MAGNESIUM SULFATE 1GM / D5W 1 GM in PREMIXED IN D5W 100 ML IV SCH ×2 (10:52→11:56)
--- NOTE | 2017-06-06 12:01 | Progress Note ---
Medicine Progress Note Date & Time of Visit: Jun 06, 2017 at 11:52. Subjective 71 yo F with UTI, left leg pain, lower back pain and numbness in thigh that had worsened. She is somewhat ambulatory and reports that pain is controlled at this time. She continues to have chills and feels feverish. She is tolerating PO. She has a headache but thinks it may be from avoiding her morning coffee. Otherwise ROS is negative. is at bedside. Discussed the case with Dr. Carter Juárez. Objective Last 8 Hrs Date Time Temp Pulse Resp B/P (MAP) Pulse Ox O2 Delivery O2 Flow Rate FiO2 06/06/17 07:31 36.9 95 16 108/51 (70) 97 Room Air 06/06/17 07:28 Room Air Physical Exam: GEN: WNWD, ill-appearing, alert and appropriate HEENT: NC/AT, normal sclerae, mucous membranes are dry CARDIO: reg rate, S1/2 heard without m/g/r LUNGS: CTA bilaterally, no crackles, rales or wheezes, good diaphragmatic excursion ABD: soft, non-tender, non-distended, no rebound or guarding, +BS, no CVA tenderness EXTREMITY: no LE swelling or edema, extremities are warm and well-perfused NEURO: CN 2-12 grossly intact, no gross focal deficits. MUSC: 5/5 strength throughout, pt was up and ambulating to bathroom SKIN: warm and dry, chills noted. Laboratory Results: 06/06/17 06:11 Red Blood Count 4.04, Mean Corpuscular Volume 83.4, Mean Corpuscular Hemoglobin 27.0, Mean Corpuscular Hemoglobin Concent 32.3, Mean Platelet Volume 9.5, Neutrophils (%) (Auto) 81.0, Lymphocytes (%) (Auto) 10.0, Monocytes (%) (Auto) 8.3, Eosinophils (%) (Auto) 0.3, Basophils (%) (Auto) 0.2, Neutrophils # (Auto) 9.60, Lymphocytes # (Auto) 1.19, Monocytes # (Auto) 0.98, Eosinophils # (Auto) 0.04, Basophils # (Auto) 0.02 06/06/17 06:11 Test 06/05/17 13:00 06/05/17 13:32 06/06/17 06:11 06/06/17 07:59 Prothrombin Time 10.0 SECONDS (9.0-12.0) Prothromb Time International Ratio 1.0 (0.9-1.1) Activated Partial Thromboplast Time 31.1 SECONDS (21.0-31.0) Partial Thromboplastin Ratio 1.2 Total Bilirubin 0.7 mg/dl (0.2-1) Aspartate Amino Transf (AST/SGOT) 8 U/L (15-37) Alanine Aminotransferase (ALT/SGPT) 18 U/L (12-78) Alkaline Phosphatase 88 U/L (45-117) Total Protein 7.9 gm/dl (6.4-8.2) Albumin 3.4 gm/dl (3.4-5.0) Globulin 4.5 gm/dl (2.5-4.0) Albumin/Globulin Ratio 0.8 (0.9-2) Urine Color YELLOW Urine Appearance CLOUDY (CLEAR) Urine pH 5.0 (4.5-7.5) Urine Specific [place] 1.014 (1.000-1.030) Urine Protein 1+ (NEG) Urine Glucose (UA) 2+ (NEG) Urine Ketones NEG (NEG) Urine Occult Blood 2+ (NEG) Urine Nitrite NEG (NEG) Urine Bilirubin NEG (NEG) Urine Urobilinogen NEG (NEG) Urine Leukocyte Esterase LARGE (NEG) Urine WBC (Auto) >30 /hpf (0-5) Urine RBC (Auto) 0-4 /hpf (0-4) Urine Hyaline Casts (Auto) 1-5 /lpf (0-5) Urine Epithelial Cells (Auto) 0-5 /lpf (0-5) Urine Bacteria (Auto) 4+ (NEG) White Blood Count 11.85 K/uL (4.8-10.8) Red Blood Count 4.04 M/uL (4.2-5.4) Hemoglobin 10.9 g/dL (12.0-16.0) Hematocrit 33.7 % (37-47) Mean Corpuscular Volume 83.4 fL (80-100) Mean Corpuscular Hemoglobin 27.0 pg (25-34) Mean Corpuscular Hemoglobin Concent 32.3 g/dl (32-36) Platelet Count 162 K/uL (130-400) Mean Platelet Volume 9.5 fL (7.4-10.4) Neutrophils (%) (Auto) 81.0 % Lymphocytes (%) (Auto) 10.0 % Monocytes (%) (Auto) 8.3 % Eosinophils (%) (Auto) 0.3 % Basophils (%) (Auto) 0.2 % Neutrophils # (Auto) 9.60 K/uL (1.4-6.5) Lymphocytes # (Auto) 1.19 K/uL (1.2-3.4) Monocytes # (Auto) 0.98 K/uL (0.11-0.59) Eosinophils # (Auto) 0.04 K/uL (0-0.5) Basophils # (Auto) 0.02 K/uL (0-0.2) RDW Standard Deviation 42.2 fL (36.4-46.3) RDW Coefficient of Variation 13.8 % (11.5-14.5) Immature Granulocyte % (Auto) 0.2 % Immature Granulocyte # (Auto) 0.02 K/uL (0.00-0.02) Anion Gap 8.0 mmol/L (3-11) Est Creatinine Clear Calc Drug Dose 55.9 ml/min Estimated GFR () 60.2 Estimated GFR (Non- 52.0 BUN/Creatinine Ratio 15.3 (10-20) Estimated Average Glucose 171 mg/dl Hemoglobin A1c 7.6 % (4.5-5.6) Calcium Level 9.0 mg/dl (8.5-10.1) Magnesium Level 1.6 mg/dl (1.8-2.4) Bedside Glucose 184 mg/dl (70-90) Date/Time Source Procedure Growth Status 06/05/17 13:32 Urine , Clean Catch Urine Culture Pending Received Last 24 Hours Test 06/05/17 13:00 06/05/17 13:32 06/05/17 18:48 06/05/17 20:52 White Blood Count 10.73 K/uL Red Blood Count 4.46 M/uL Hemoglobin 12.2 g/dL Hematocrit 37.2 % Mean Corpuscular Volume 83.4 fL Mean Corpuscular Hemoglobin 27.4 pg Mean Corpuscular Hemoglobin Concent 32.8 g/dl Platelet Count 194 K/uL Mean Platelet Volume 10.0 fL Neutrophils (%) (Auto) 83.6 % Lymphocytes (%) (Auto) 8.9 % Monocytes (%) (Auto) 6.9 % Eosinophils (%) (Auto) 0.1 % Basophils (%) (Auto) 0.1 % Neutrophils # (Auto) 8.98 K/uL Lymphocytes # (Auto) 0.95 K/uL Monocytes # (Auto) 0.74 K/uL Eosinophils # (Auto) 0.01 K/uL Basophils # (Auto) 0.01 K/uL RDW Standard Deviation 41.6 fL RDW Coefficient of Variation 13.8 % Immature Granulocyte % (Auto) 0.4 % Immature Granulocyte # (Auto) 0.04 K/uL Prothrombin Time 10.0 SECONDS Prothromb Time International Ratio 1.0 Activated Partial Thromboplast Time 31.1 SECONDS Partial Thromboplastin Ratio 1.2 Sodium Level 132 mmol/L Potassium Level 3.8 mmol/L Chloride Level 97 mmol/L Carbon Dioxide Level 24 mmol/L Anion Gap 11.0 mmol/L Blood Urea Nitrogen 15 mg/dl Creatinine 1.19 mg/dl Est Creatinine Clear Calc Drug Dose 50.8 ml/min Estimated GFR () 53.6 Estimated GFR (Non- 46.2 BUN/Creatinine Ratio 12.5 Random Glucose 295 mg/dl Calcium Level 9.2 mg/dl Total Bilirubin 0.7 mg/dl Aspartate Amino Transf (AST/SGOT) 8 U/L Alanine Aminotransferase (ALT/SGPT) 18 U/L Alkaline Phosphatase 88 U/L Total Protein 7.9 gm/dl Albumin 3.4 gm/dl Globulin 4.5 gm/dl Albumin/Globulin Ratio 0.8 Urine Color YELLOW Urine Appearance CLOUDY Urine pH 5.0 Urine Specific [place] 1.014 Urine Protein 1+ Urine Glucose (UA) 2+ Urine Ketones NEG Urine Occult Blood 2+ Urine Nitrite NEG Urine Bilirubin NEG Urine Urobilinogen NEG Urine Leukocyte Esterase LARGE Urine WBC (Auto) >30 /hpf Urine RBC (Auto) 0-4 /hpf Urine Hyaline Casts (Auto) 1-5 /lpf Urine Epithelial Cells (Auto) 0-5 /lpf Urine Bacteria (Auto) 4+ Bedside Glucose 162 mg/dl 239 mg/dl Test 06/06/17 06:11 06/06/17 07:59 White Blood Count 11.85 K/uL Red Blood Count 4.04 M/uL Hemoglobin 10.9 g/dL Hematocrit 33.7 % Mean Corpuscular Volume 83.4 fL Mean Corpuscular Hemoglobin 27.0 pg Mean Corpuscular Hemoglobin Concent 32.3 g/dl Platelet Count 162 K/uL Mean Platelet Volume 9.5 fL Neutrophils (%) (Auto) 81.0 % Lymphocytes (%) (Auto) 10.0 % Monocytes (%) (Auto) 8.3 % Eosinophils (%) (Auto) 0.3 % Basophils (%) (Auto) 0.2 % Neutrophils # (Auto) 9.60 K/uL Lymphocytes # (Auto) 1.19 K/uL Monocytes # (Auto) 0.98 K/uL Eosinophils # (Auto) 0.04 K/uL Basophils # (Auto) 0.02 K/uL RDW Standard Deviation 42.2 fL RDW Coefficient of Variation 13.8 % Immature Granulocyte % (Auto) 0.2 % Immature Granulocyte # (Auto) 0.02 K/uL Sodium Level 136 mmol/L Potassium Level 3.8 mmol/L Chloride Level 102 mmol/L Carbon Dioxide Level 26 mmol/L Anion Gap 8.0 mmol/L Blood Urea Nitrogen 17 mg/dl Creatinine 1.08 mg/dl Est Creatinine Clear Calc Drug Dose 55.9 ml/min Estimated GFR () 60.2 Estimated GFR (Non- 52.0 BUN/Creatinine Ratio 15.3 Random Glucose 179 mg/dl Estimated Average Glucose 171 mg/dl Hemoglobin A1c 7.6 % Calcium Level 9.0 mg/dl Magnesium Level 1.6 mg/dl Bedside Glucose 184 mg/dl Date/Time Source Procedure Growth Status 06/05/17 13:32 Urine , Clean Catch Urine Culture Pending Received Assessment & Plan 71 yo F with UTI, left leg pain, lower back pain and numbness in thigh that had worsened. 1. UTI-Tm was 39.5C last night, but she has had no fevers since then. Continues on Vanc and Cefepime until culture results return. Clinical dehydration present likely 2/2 insensible loss 2/2 fevers and continued chills so will continue with another 2 bags of IVF now. Pt is tolerating PO. 2. Lumbar spine mass-poss schwannoma or nerve sheath tumor. Ortho spine recommends seeing Neurosurgery in [place] as outpatient after discharge. Cont pain control efforts. PT/OT. 3. CAD s/p stent. Stable no chest pain or SOB at this time. Cont medical management with Toprol XL, ASA, Plavix and stating. 4. DMII- Hold metformin, place on Lantus insulin sliding scale. A1C is 7.6. 5. Hypertension-controlled, Continue losartan, Toprol-XL with hold parameters. 6. History of asthma, mild persistent, currently stable. Continue Advair Diskus and Ventolin p.r.n. 7. Chronic kidney disease stage III-appears to be at baseline. 8. Hyperlipidemia- statin. Full Code DVT prophy-Lovenox Dispo-uncertain at this time. Kaitlynn Mcgregor DO [facility] Hospitalist Consultants: Ortho Spine-Dr. Juárez Current Inpatient Medications: Current Inpatient Medications Medications (Trade) Dose Ordered Sig/Duong Route Start Time Stop Time Status Last Admin Dose Admin Gadobutrol (Gadavist) 8.4 mmol UD PRN IV 06/05/17 15:10 06/09/17 15:09 Enoxaparin Sodium (Lovenox Inj) 40 mg HS SQ 06/05/17 22:30 07/05/17 22:29 06/06/17 00:03 40 MG Acetaminophen (Tylenol Tab) 650 mg Q4H PRN PO 06/05/17 17:30 07/05/17 17:29 Al Hydrox/Mg Hydrox/Simethicone (Maalox Max Susp) 15 ml Q4H PRN PO 06/05/17 17:30 07/05/17 17:29 Ondansetron HCl (Zofran Inj) 4 mg Q6H PRN IV 06/05/17 17:30 07/05/17 17:29 Acetaminophen/ Codeine Phosphate (Tylenol w/ Codeine #3 Tab) 2 tab Q4H PRN PO 06/05/17 17:30 07/05/17 17:29 06/06/17 04:50 2 TAB Albuterol (Ventolin Hfa Inhaler) 2 puffs Q6H PRN INH 06/05/17 17:30 07/05/17 17:29 Aspirin (Ecotrin Tab) 81 mg QAM PO 06/06/17 09:00 07/06/17 08:59 06/06/17 09:12 81 MG Atorvastatin Calcium (Lipitor Tab) 40 mg DAILY PO 06/06/17 09:00 07/06/17 08:59 06/06/17 09:14 40 MG Clopidogrel Bisulfate (plAVix TAB) 75 mg QAM PO 06/06/17 09:00 07/06/17 08:59 06/06/17 09:13 75 MG Cyclobenzaprine HCl (Flexeril Tab) 10 mg TID PRN PO 06/05/17 17:30 07/05/17 17:29 Desonide ([place] 0.05% Crm) 1 appln DAILY PRN EXT 06/05/17 17:30 07/05/17 17:29 Duloxetine HCl (Cymbalta Cap) 20 mg DAILY PO 06/06/17 09:00 07/06/17 08:59 06/06/17 09:12 20 MG Salmeterol Xinafoate/ Fluticasone (Advair Diskus 250/50 Inh) 1 puff BID INH 06/05/17 21:00 07/05/17 20:59 06/06/17 09:11 1 PUFF Acetaminophen/ Hydrocodone Bitart ([place] 5/325 Tab) 1 tab Q6H PRN PO 06/05/17 17:30 06/19/17 17:29 Losartan Potassium (coZAAR TAB) 50 mg QAM PO 06/06/17 09:00 07/06/17 08:59 06/06/17 09:12 50 MG Metoprolol Succinate (Toprol Xl Tab) 50 mg DAILY PO 06/06/17 09:00 07/06/17 08:59 06/06/17 09:13 50 MG Multivitamins (Multivitamin Tab) 1 tab QAM PO 06/06/17 09:00 07/06/17 08:59 06/06/17 09:13 1 TAB Ranitidine HCl (zANTac TAB) 300 mg HS PO 06/05/17 21:00 07/05/17 20:59 06/05/17 21:29 300 MG Insulin Aspart (novoLOG ASPART) SLIDING SCALE G... ACHS SC 06/05/17 21:00 07/05/17 20:59 06/06/17 09:10 6 UNITS Sodium Chloride 1,000 ml @ 125 mls/hr Q8H IV 06/05/17 20:30 07/05/17 20:29 06/06/17 07:33 125 MLS/HR Hydromorphone HCl (Dilaudid Inj) 0.5 mg Q3HWA PRN IV 06/05/17 17:30 06/19/17 17:29 Insulin Glargine (Lantus Solostar Pen) 6 units HS SC 06/05/17 21:00 07/05/17 20:59 06/05/17 21:25 6 UNITS Glucose (Glucose 40% Gel) 15-30 GRAMS 15 GRAMS... UD PRN PO 06/05/17 20:30 07/05/17 20:29 Glucose (Glucose Chew Tab) 4-8 Tablets 4 Tabl... UD PRN PO 06/05/17 20:30 07/05/17 20:29 Dextrose (Dextrose 50% 50ML Syringe) 25-50ML OF 50% DW IV FOR... UD PRN IV 06/05/17 20:30 07/05/17 20:29 Glucagon (Glucagon Inj) 1 mg UD PRN SQ 06/05/17 20:30 07/05/17 20:29 Cefepime HCl 2000 mg/Syringe 20 ml @ 5 mls/min Q12H IV 06/05/17 21:00 06/15/17 20:59 06/06/17 10:38 5 MLS/MIN Cefepime HCl (Consult) 1 ea UD PRN N/A 06/05/17 21:15 07/05/17 21:14 Vancomycin HCl (Consult) 1 ea UD PRN N/A 06/05/17 21:15 07/05/17 21:14 Vancomycin HCl 1250 mg/Sodium Chloride 275 ml @ 200 mls/hr Q12H IV 06/06/17 10:00 06/16/17 09:59 06/06/17 09:59 200 MLS/HR Magnesium Sulfate 1 gm/Prmx 100 ml @ 100 mls/hr Q1H IV 06/06/17 10:15 06/06/17 12:14 06/06/17 10:52 100 MLS/HR
[2017-06-06] MEDS: ONDANSETRON INJ 2 MG/ML 2 ML VIAL IV PRN ×2 (13:06→23:45)
--- NOTE | 2017-06-06 13:29 | Orthopedic Consultation ---
Orthopedic Consultation Date of Consultation: Jun 06, 2017. Attending Physician: Kaitlynn Mcgregor DO Reason for Consultation: Left leg pain History of Present Illness This is a very pleasant 8-year-old female that has a history of worsening left groin and anterior thigh pain over the past year. 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 She's had to postoperative hip dislocations. She also notes marked weakness to her hip flexors numbness and pain extending across the buttock into the anterior lateral thigh. Is markedly exacerbated by standing and walking. The pain has been progressive in nature. 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 She notes no right leg pain. Past Medical/Surgical History Medical Problems: (1) Abnormal MRI, lumbar spine Status: Acute (2) Hip dislocation, left Status: Acute (3) Left leg numbness Status: Acute (4) Left leg pain Status: Acute Family History Diabetes mellitus FATHER MOTHER BROTHER SISTER FH: HTN (hypertension) FH: cancer FH: heart disease BROTHER FH: kidney disease Social History Smoking Status: Former Smoker Drug Use: none Marital Status: Housing Status: lives with family Occupation Status: retired Allergies Coded Allergies: Grass (Verified Allergy, Unknown, GRASS TREES, SOB AGGREVATES ASTHMA, ) Latex (Verified Allergy, Unknown, ITCHING FROM LATEX BALLOON PLACED IN NOSE FROM NOSEBLEED, 06/05/17) Atorvastatin (Unverified Adverse Reaction, Mild, JOINT AND MUSCLE ACHES, 06/05/17) Naloxone (Verified Adverse Reaction, Unknown, DIZZINESS, 06/05/17) Pentazocine (Unverified Adverse Reaction, Unknown, DIZZINESS, 06/05/17) Pioglitazone (Verified Adverse Reaction, Unknown, RAPID WEIGHT GAIN, 06/05) Home Medications Scheduled Aspirin (Aspirin EC Low Dose), 81 MG PO QAM Atorvastatin (Atorvastatin Calcium), 40 MG PO DAILY Clopidogrel Bisulfate (Clopidogrel), 75 MG PO QAM Duloxetine Hcl (Cymbalta), 20 MG PO DAILY Fluticasone Prop/Salmeterol (Advair Diskus 250/50 60 Dose), 1 PUFFS INH BID Losartan Potassium (Cozaar), 50 MG PO QAM Metformin Hcl (Glucophage), 1,000 MG PO QAM Metoprolol Succinate (Toprol Xl), 50 MG PO DAILY Multivitamin (Multivitamin), 1 TAB PO QAM Ranitidine Hcl (Zantac), 300 MG PO HS Scheduled PRN Acetaminophen/Codeine (Tylenol W/Codeine #3), 2 TAB PO Q4 PRN for Pain Albuterol Hfa (Ventolin Hfa), 2 PUFFS INH Q6H PRN for Cough Cyclobenzaprine Hcl (Flexeril), 10 MG PO TID PRN for muscle spasm Desonide 0.05% (Desowen 0.05%), 1 APPLN TOP DAILY PRN for RN Hydrocodone/Acetaminophen 5MG/325MG ([place] 5MG/325MG), 1 TABLET PO Q6 PRN for Pain Nitroglycerin (Nitrostat), 0.4 MG SL q5min PRN for Chest Pain Current Inpatient Medications Current Inpatient Medications Medications (Trade) Dose Ordered Sig/Duong Route Start Time Stop Time Status Last Admin Dose Admin Gadobutrol (Gadavist) 8.4 mmol UD PRN IV 06/05/17 15:10 06/09/17 15:09 Enoxaparin Sodium (Lovenox Inj) 40 mg HS SQ 06/05/17 22:30 07/05/17 22:29 06/06/17 00:03 40 MG Acetaminophen (Tylenol Tab) 650 mg Q4H PRN PO 06/05/17 17:30 07/05/17 17:29 Al Hydrox/Mg Hydrox/Simethicone (Maalox Max Susp) 15 ml Q4H PRN PO 06/05/17 17:30 07/05/17 17:29 Ondansetron HCl (Zofran Inj) 4 mg Q6H PRN IV 06/05/17 17:30 07/05/17 17:29 06/06/17 13:06 4 MG Acetaminophen/ Codeine Phosphate (Tylenol w/ Codeine #3 Tab) 2 tab Q4H PRN PO 06/05/17 17:30 07/05/17 17:29 06/06/17 04:50 2 TAB Albuterol (Ventolin Hfa Inhaler) 2 puffs Q6H PRN INH 06/05/17 17:30 07/05/17 17:29 Aspirin (Ecotrin Tab) 81 mg QAM PO 06/06/17 09:00 07/06/17 08:59 06/06/17 09:12 81 MG Atorvastatin Calcium (Lipitor Tab) 40 mg DAILY PO 06/06/17 09:00 07/06/17 08:59 06/06/17 09:14 40 MG Clopidogrel Bisulfate (plAVix TAB) 75 mg QAM PO 06/06/17 09:00 07/06/17 08:59 06/06/17 09:13 75 MG Cyclobenzaprine HCl (Flexeril Tab) 10 mg TID PRN PO 06/05/17 17:30 07/05/17 17:29 Desonide (Desowen 0.05% Crm) 1 appln DAILY PRN EXT 06/05/17 17:30 07/05/17 17:29 Duloxetine HCl (Cymbalta Cap) 20 mg DAILY PO 06/06/17 09:00 07/06/17 08:59 06/06/17 09:12 20 MG Salmeterol Xinafoate/ Fluticasone (Advair Diskus 250/50 Inh) 1 puff BID INH 06/05/17 21:00 07/05/17 20:59 06/06/17 09:11 1 PUFF Acetaminophen/ Hydrocodone Bitart ([place] 5/325 Tab) 1 tab Q6H PRN PO 06/05/17 17:30 06/19/17 17:29 Losartan Potassium (coZAAR TAB) 50 mg QAM PO 06/06/17 09:00 07/06/17 08:59 06/06/17 09:12 50 MG Metoprolol Succinate (Toprol Xl Tab) 50 mg DAILY PO 06/06/17 09:00 07/06/17 08:59 06/06/17 09:13 50 MG Multivitamins (Multivitamin Tab) 1 tab QAM PO 06/06/17 09:00 07/06/17 08:59 06/06/17 09:13 1 TAB Ranitidine HCl (zANTac TAB) 300 mg HS PO 06/05/17 21:00 07/05/17 20:59 06/05/17 21:29 300 MG Insulin Aspart (novoLOG ASPART) SLIDING SCALE G... ACHS SC 06/05/17 21:00 07/05/17 20:59 06/06/17 13:01 1 UNITS Hydromorphone HCl (Dilaudid Inj) 0.5 mg Q3HWA PRN IV 06/05/17 17:30 06/19/17 17:29 Insulin Glargine (Lantus Solostar Pen) 6 units HS SC 06/05/17 21:00 07/05/17 20:59 06/05/17 21:25 6 UNITS Glucose (Glucose 40% Gel) 15-30 GRAMS 15 GRAMS... UD PRN PO 06/05/17 20:30 07/05/17 20:29 Glucose (Glucose Chew Tab) 4-8 Tablets 4 Tabl... UD PRN PO 06/05/17 20:30 07/05/17 20:29 Dextrose (Dextrose 50% 50ML Syringe) 25-50ML OF 50% DW IV FOR... UD PRN IV 06/05/17 20:30 07/05/17 20:29 Glucagon (Glucagon Inj) 1 mg UD PRN SQ 06/05/17 20:30 07/05/17 20:29 Cefepime HCl 2000 mg/Syringe 20 ml @ 5 mls/min Q12H IV 06/05/17 21:00 06/15/17 20:59 06/06/17 10:38 5 MLS/MIN Cefepime HCl (Consult) 1 ea UD PRN N/A 06/05/17 21:15 07/05/17 21:14 Vancomycin HCl (Consult) 1 ea UD PRN N/A 06/05/17 21:15 07/05/17 21:14 Vancomycin HCl 1250 mg/Sodium Chloride 275 ml @ 200 mls/hr Q12H IV 06/06/17 10:00 06/16/17 09:59 06/06/17 09:59 200 MLS/HR Sodium Chloride 1,000 ml @ 125 mls/hr Q8H IV 06/06/17 12:00 06/07/17 03:59 Physical Exam Date Time Temp Pulse Resp B/P (MAP) Pulse Ox O2 Delivery O2 Flow Rate FiO2 06/06/17 13:15 37.6 06/06/17 07:31 36.9 95 16 108/51 (70) 97 Room Air 06/06/17 07:28 Room Air 06/06/17 00:05 Room Air 06/05/17 23:14 36.6 81 16 100/58 (72) 93 Room Air 06/05/17 22:31 36.7 06/05/17 18:30 36.9 118 20 103/69 94 Room Air 06/05/17 18:01 39.5 110 16 139/66 92 06/05/17 17:48 39.5 110 16 139/66 92 Room Air 06/05/17 16:51 38.6 10 16 128/62 97 Room Air 06/05/17 15:54 37.8 98 16 127/66 95 Room Air 06/05/17 15:25 06/05/17 13:55 93 20 116/78 96 Room Air Patient is able to stand and ambulate. She notes pain radiating into her buttock and anterior thigh with prolonged standing. She is to sit after a discussion. She exhibits plus out of 5 bilateral plantar flexion dorsiflexion. Quadriceps are symmetric and equal. She does have marked weakness to hip flexors on the left. She notes sensory changes along the left anterior proximal tibia. Laboratory Results Last 24 Hours Test 06/05/17 13:32 06/05/17 18:48 06/05/17 20:52 06/06/17 06:11 Urine Color YELLOW Urine Appearance CLOUDY Urine pH 5.0 Urine Specific [place] 1.014 Urine Protein 1+ Urine Glucose (UA) 2+ Urine Ketones NEG Urine Occult Blood 2+ Urine Nitrite NEG Urine Bilirubin NEG Urine Urobilinogen NEG Urine Leukocyte Esterase LARGE Urine WBC (Auto) >30 /hpf Urine RBC (Auto) 0-4 /hpf Urine Hyaline Casts (Auto) 1-5 /lpf Urine Epithelial Cells (Auto) 0-5 /lpf Urine Bacteria (Auto) 4+ Bedside Glucose 162 mg/dl 239 mg/dl White Blood Count 11.85 K/uL Red Blood Count 4.04 M/uL Hemoglobin 10.9 g/dL Hematocrit 33.7 % Mean Corpuscular Volume 83.4 fL Mean Corpuscular Hemoglobin 27.0 pg Mean Corpuscular Hemoglobin Concent 32.3 g/dl Platelet Count 162 K/uL Mean Platelet Volume 9.5 fL Neutrophils (%) (Auto) 81.0 % Lymphocytes (%) (Auto) 10.0 % Monocytes (%) (Auto) 8.3 % Eosinophils (%) (Auto) 0.3 % Basophils (%) (Auto) 0.2 % Neutrophils # (Auto) 9.60 K/uL Lymphocytes # (Auto) 1.19 K/uL Monocytes # (Auto) 0.98 K/uL Eosinophils # (Auto) 0.04 K/uL Basophils # (Auto) 0.02 K/uL RDW Standard Deviation 42.2 fL RDW Coefficient of Variation 13.8 % Immature Granulocyte % (Auto) 0.2 % Immature Granulocyte # (Auto) 0.02 K/uL Sodium Level 136 mmol/L Potassium Level 3.8 mmol/L Chloride Level 102 mmol/L Carbon Dioxide Level 26 mmol/L Anion Gap 8.0 mmol/L Blood Urea Nitrogen 17 mg/dl Creatinine 1.08 mg/dl Est Creatinine Clear Calc Drug Dose 55.9 ml/min Estimated GFR () 60.2 Estimated GFR (Non- 52.0 BUN/Creatinine Ratio 15.3 Random Glucose 179 mg/dl Estimated Average Glucose 171 mg/dl Hemoglobin A1c 7.6 % Calcium Level 9.0 mg/dl Magnesium Level 1.6 mg/dl Test 06/06/17 07:59 Bedside Glucose 184 mg/dl Assessment & Plan Assessment left leg pain radicular nature. Plan long discussion with this patient and her reviewing her MRI findings and clinical presentation. Clearly the hip surgery and postop dislocations could be continuing to the hip flexor weakness and leg pain however there does appear to be a component of radicular pain in association with her complaints. MRI does show evidence of neural compression. Clearly along the left L3 nerve root. I did explain to the patient it is possible extradural mass. It is best that she seek a neurosurgical consultation. Patient and her understand and agree. This is not a procedure I feel comfortable performing our institution at this time.
[2017-06-06] MEDS ORDERED: PROMETHAZINE HCL 12.5 MG SUPP PR ONE (16:00)
[2017-06-06] MEDS: HYDROmorphone INJ 0.5 MG/0.5 ML SYR IV PRN ×2 (16:30→23:40)
[2017-06-06] MEDS: RANITIDINE HCL 150 MG TAB PO SCH (20:58)
[2017-06-06] MEDS: INSULIN GLARGINE SOLOSTAR 100 UNITS/ML 3 ML PEN SC SCH (21:00)
[2017-06-07] VITALS (7 sets, daily range): BP systolic 104–157; BP diastolic 52–75; PULSE 81–102; TEMP 36.7–37.9; O2SAT 92–98
[2017-06-07 07:12] LABS: BASO % 0.1 %; BASO ABS # 0.01 K/uL (0-0.2); COMPLETE YES; EOS % 0.3 %; HEMATOCRIT 31.4 % (37-47); IG% 0.5 %; LYMPH % 17.9 %; LYMPH ABS # 1.31 K/uL (1.2-3.4); MEAN CELL VOLUME 83.7 fL (80-100); MEAN CORPUSCULAR HEMOGLOBIN 27.2 pg (25-34); MEAN CORPUSCULAR HGB CONC 32.5 g/dl (32-36); MEAN PLATELET VOLUME 9.7 fL (7.4-10.4); MONO % 10.7 %; NEUT % 70.5 %; PLATELET COUNT 144 K/uL (130-400); RED BLOOD COUNT 3.75 M/uL (4.2-5.4)
[2017-06-07 07:40] LABS: BUN/CREATININE RATIO 12.3 (10-20); CALCIUM 9.2 mg/dl (8.5-10.1); CREATININE 1.07 mg/dl (0.60-1.20); MAGNESIUM 2.2 mg/dl (1.8-2.4); POTASSIUM 3.8 mmol/L (3.5-5.1)
[2017-06-07] MEDS: ONDANSETRON INJ 2 MG/ML 2 ML VIAL IV PRN (07:41)
[2017-06-07] MEDS: ACETAMINOPHEN/CODEINE 300/30MG TAB PO PRN ×2 (07:43→20:10)
[2017-06-07] MEDS: CLOPIDOGREL BISULFATE 75 MG TAB PO SCH (07:44)
[2017-06-07] MEDS: DULOXETINE HCL 20 MG CAP PO SCH (07:44)
[2017-06-07] MEDS: ATORVASTATIN 40 MG TAB PO SCH (07:44)
[2017-06-07] MEDS: MULTIVITAMIN TAB PO SCH (07:44)
[2017-06-07] MEDS: LOSARTAN POTASSIUM 50 MG TAB PO SCH (07:44)
[2017-06-07] MEDS: ASPIRIN 81 MG ECTAB PO SCH (07:44)
[2017-06-07] MEDS: METOPROLOL SUCC 50MG EXT REL TAB PO SCH (07:44)
[2017-06-07] MEDS: FLUTICASONE/SALMETEROL 250/50 (ADVAIR) 14 PUFF/1 INHALER INH SCH ×2 (07:50→21:38)
[2017-06-07] MEDS: INSULIN GLARGINE SOLOSTAR 100 UNITS/ML 3 ML PEN SC SCH ×2 (07:50→21:43)
[2017-06-07] MEDS: INSULIN ASPART 100 UNITS/ML 3 ML PEN SC SCH ×4 (08:15→21:42)
[2017-06-07] MEDS: CEFEPIME IV 2,000 MG in SYRINGE 7.5 ML IV SCH (08:22)
[2017-06-07] MEDS ORDERED: VANCOMYCIN TROUGH SCH (09:30)
[2017-06-07] MEDS: CEFTRIAXONE SOD INJ 1 GM in DEXTROSE 5% ADD-VANTAGE 50ML 50 ML IV SCH (10:09)
--- NOTE | 2017-06-07 18:27 | Progress Note ---
Internal Med Progress Note Date of Service: Jun 07, 2017. Provider Documentation: SUBJECTIVE: resting comfortably no more fever spike no chills eating ok back pain is better OBJECTIVE: Vital Signs-as noted below Exam: General-alert and oriented. not in distress ENT-Normal hearing Neck-no neck masses Lungs-Cta b/l no wheezing or crackles Heart-S1 and S2 heard regular No murmurs Abdomen-Soft Bowel sounds present Non tender No distension Extremities-No edema No erythema Neuro-alert and awake moves extremities Lab data as noted below. ASSESSMENT & PLAN: 71 yo F with UTI, left leg pain, lower back pain and numbness in thigh that had worsened. 1. UTI- was placed on iv vanco and cefepime intially for possible early sepsis. currently stable and cx growing nobel sensitive e.coli. ABX changed to Rocephin today. 2. Lumbar spine mass-poss schwannoma or nerve sheath tumor. Ortho spine recommends seeing Neurosurgery in [place] as outpatient after discharge. Cont pain control efforts. PT/OT. 3. CAD s/p stent. Stable on Toprol XL, ASA, Plavix and statin. 4. DMII- Holding metformin, place on Lantus insulin sliding scale. A1C is 7.6. Will monitor. 5. Hypertension-controlled, Continue losartan, Toprol-XL with hold parameters. 6. History of asthma, mild persistent, currently stable. Continue Advair Diskus and Ventolin p.r.n.Stable. 7. Chronic kidney disease stage III-appears to be at baseline. 8. Hyperlipidemia- statin. DVT PROPHYLAXIS Lovenox DISPOSITION transfer to medical floor possible d/c in am Vital Signs: Date Time Temp Pulse Resp B/P (MAP) Pulse Ox O2 Delivery O2 Flow Rate FiO2 06/07/17 16:00 Room Air 06/07/17 15:36 37.0 85 18 112/72 (85) 92 Room Air 06/07/17 11:25 Room Air 06/07/17 11:13 36.7 81 16 106/52 (70) 96 06/07/17 08:13 36.8 86 18 121/61 (81) 98 06/07/17 08:00 Room Air 06/07/17 04:02 Room Air 06/07/17 03:43 36.7 82 20 104/58 (73) 95 Room Air 06/07/17 00:00 Room Air 06/06/17 23:44 37.4 96 19 136/70 (92) 95 Room Air 06/06/17 20:00 Room Air 06/06/17 19:27 36.7 78 20 111/61 (78) 98 Room Air 06/06/17 18:47 36.5 76 18 101/64 (76) 95 Room Air 95/61 (72) Lab Results: Results Past 24 Hours Test 06/06/17 20:30 06/07/17 06:28 06/07/17 06:39 06/07/17 09:57 Range/Units Bedside Glucose 169 148 70-90 mg/dl White Blood Count 7.30 4.8-10.8 K/uL Red Blood Count 3.75 4.2-5.4 M/uL Hemoglobin 10.2 12.0-16.0 g/dL Hematocrit 31.4 37-47 % Mean Corpuscular Volume 83.7 80-100 fL Mean Corpuscular Hemoglobin 27.2 25-34 pg Mean Corpuscular Hemoglobin Concent 32.5 32-36 g/dl Platelet Count 144 130-400 K/uL Mean Platelet Volume 9.7 7.4-10.4 fL Neutrophils (%) (Auto) 70.5 % Lymphocytes (%) (Auto) 17.9 % Monocytes (%) (Auto) 10.7 % Eosinophils (%) (Auto) 0.3 % Basophils (%) (Auto) 0.1 % Neutrophils # (Auto) 5.14 1.4-6.5 K/uL Lymphocytes # (Auto) 1.31 1.2-3.4 K/uL Monocytes # (Auto) 0.78 0.11-0.59 K/uL Eosinophils # (Auto) 0.02 0-0.5 K/uL Basophils # (Auto) 0.01 0-0.2 K/uL RDW Standard Deviation 42.9 36.4-46.3 fL RDW Coefficient of Variation 14.1 11.5-14.5 % Immature Granulocyte % (Auto) 0.5 % Immature Granulocyte # (Auto) 0.04 0.00-0.02 K/uL Sodium Level 137 136-145 mmol/L Potassium Level 3.8 3.5-5.1 mmol/L Chloride Level 107 98-107 mmol/L Carbon Dioxide Level 26 21-32 mmol/L Anion Gap 4.0 3-11 mmol/L Blood Urea Nitrogen 13 7-18 mg/dl Creatinine 1.07 0.60-1.20 mg/dl Est Creatinine Clear Calc Drug Dose 56.5 ml/min Estimated GFR () 60.9 Estimated GFR (Non- 52.6 BUN/Creatinine Ratio 12.3 10-20 Random Glucose 146 70-99 mg/dl Calcium Level 9.2 8.5-10.1 mg/dl Magnesium Level 2.2 1.8-2.4 mg/dl Vancomycin Level Trough 17.8 SEE COMMENT mcg/ml Test 06/07/17 11:09 06/07/17 16:12 Range/Units Bedside Glucose 187 95 70-90 mg/dl
[2017-06-07] MEDS: RANITIDINE HCL 150 MG TAB PO SCH (21:39)
[2017-06-07] MEDS: ENOXAPARIN 40 MG/0.4 ML SYR SQ SCH (21:39)
[2017-06-08] MEDS: ACETAMINOPHEN/CODEINE 300/30MG TAB PO PRN (06:04)
[2017-06-08 07:37] VITALS: BP 129/78; PULSE 77; TEMP 37.1; O2SAT 96
[2017-06-08] MEDS: FLUTICASONE/SALMETEROL 250/50 (ADVAIR) 14 PUFF/1 INHALER INH SCH (08:11)
[2017-06-08] MEDS: HYDROmorphone INJ 0.5 MG/0.5 ML SYR IV PRN (08:11)
[2017-06-08] MEDS: ATORVASTATIN 40 MG TAB PO SCH (08:12)
[2017-06-08] MEDS: MULTIVITAMIN TAB PO SCH (08:12)
[2017-06-08] MEDS: ASPIRIN 81 MG ECTAB PO SCH (08:12)
[2017-06-08] MEDS: METOPROLOL SUCC 50MG EXT REL TAB PO SCH (08:12)
[2017-06-08] MEDS: CLOPIDOGREL BISULFATE 75 MG TAB PO SCH (08:12)
[2017-06-08] MEDS: DULOXETINE HCL 20 MG CAP PO SCH (08:12)
[2017-06-08] MEDS: LOSARTAN POTASSIUM 50 MG TAB PO SCH (08:13)
[2017-06-08] MEDS: INSULIN ASPART 100 UNITS/ML 3 ML PEN SC SCH ×2 (08:22→12:42)
[2017-06-08] MEDS: INSULIN GLARGINE SOLOSTAR 100 UNITS/ML 3 ML PEN SC SCH (08:23)
[2017-06-08 08:56] LABS: BASO % 0.1 %; BASO ABS # 0.01 K/uL (0-0.2); COMPLETE YES; HEMATOCRIT 30.4 % (37-47); IG% 0.1 %; MEAN CELL VOLUME 82.8 fL (80-100); MEAN CORPUSCULAR HEMOGLOBIN 27.2 pg (25-34); MEAN CORPUSCULAR HGB CONC 32.9 g/dl (32-36); MEAN PLATELET VOLUME 9.6 fL (7.4-10.4); MONO % 14.8 %; PLATELET COUNT 170 K/uL (130-400); RED BLOOD COUNT 3.67 M/uL (4.2-5.4); WHITE BLOOD COUNT 7.22 K/uL (4.8-10.8)
[2017-06-08 09:26] LABS: BUN/CREATININE RATIO 14.5 (10-20); CALCIUM 9.8 mg/dl (8.5-10.1); CREATININE 0.98 mg/dl (0.60-1.20); MAGNESIUM 2.2 mg/dl (1.8-2.4); POTASSIUM 3.7 mmol/L (3.5-5.1)
[2017-06-08] MEDS ORDERED: NURSING VERBAL MED ORDER ONE (10:00)
[2017-06-08] MEDS: CEFTRIAXONE SOD INJ 1 GM in DEXTROSE 5% ADD-VANTAGE 50ML 50 ML IV SCH (10:01)
[2017-06-08] MEDS ORDERED: LIDODERM (LIDOCAINE) PATCH 5% TD SCH (11:00)
[2017-06-08] MEDS ORDERED: CEFU1TAB36 PO (14:12)
[2017-06-08] MEDS ORDERED: HYDR-5688 PO (14:12)
[2017-06-08] MEDS ORDERED: LCTX PO (14:12)
--- NOTE | 2017-06-08 14:14 | Discharge Instructions ---
Discharge Instructions Date of Service Jun 08, 2017. Admission Reason for Admission: Abnormal Mri,Lumbar Spine Discharge Discharge Diagnosis / Problem: uti, fEVER, lUMBAR MASS Discharge Goals Goal(s): Decrease discomfort Activity Recommendations Activity Limitations: resume your previous activity . Instructions / Follow-Up Instructions / Follow-Up FOLLOWUP WITH FAMILY DOCTOR Rafiq Santillan ON May AT 11:25AM FOLLOWUP WITH NEUROSURGERY SOON POSSIBLE FOR LUMBAR MASS WITH FAMILY DOCTOR REFERRAL. Current Hospital Diet Patient's current hospital diet: Diabetes Type 2 Diet Discharge Diet Recommended Diet: Diabetes Type 2 Diet Pending Studies Studies pending at discharge: no Laboratory Results Hemoglobin A1c Test 06/06/17 06:11 Range/Units Estimated Average Glucose 171 mg/dl Hemoglobin A1c 7.6 H 4.5-5.6 % Medical Emergencies . Who to Call and When: Medical Emergencies: If at any time you feel your situation is an emergency, please call 911 immediately. . Non-Emergent Contact Non-Emergency issues call your: Primary Care Provider . . "Provider Documentation" section prepared by Kushal Ramos. . VTE Core Measure Inpt VTE Proph given/why not?: Enoxaparin (Lovenox)SQ
[2017-06-08 14:37] VITALS: BP 129/78; PULSE 77; TEMP 37.1; O2SAT 96
[2017-06-08 15:16] VITALS: BP 115/66; PULSE 90; TEMP 37.1; O2SAT 94
--- NOTE | 2017-06-08 18:11 | Progress Note ---
Internal Med Progress Note Date of Service: Jun 08, 2017. Provider Documentation: SUBJECTIVE: resting comfortably afebrile today no nausea ambulating ok has chronic back pain ok for discharge OBJECTIVE: Vital Signs-as noted below Exam: General-alert and oriented. not in distress ENT-Normal hearing Neck-no neck masses Lungs-Cta b/l no wheezing or crackles Heart-S1 and S2 heard regular No murmurs Abdomen-Soft Bowel sounds present Non tender No distension Extremities-No edema No erythema Neuro-alert and awake moves extremities Lab data as noted below. ASSESSMENT & PLAN: 71 yo F with UTI, left leg pain, lower back pain and numbness in thigh that had worsened. 1. UTI- was placed on iv vanco and cefepime intially for possible early sepsis. currently stable and cx growing noble sensitive e.coli. ABX changed to Rocephin today.d/c on cefuroxime 2. Lumbar spine mass-poss schwannoma or nerve sheath tumor. Ortho spine recommends seeing Neurosurgery in [place] as outpatient after discharge. Cont pain control efforts. PT/OT.f/u with neurosurgery 3. CAD s/p stent. Stable on Toprol XL, ASA, Plavix and statin. 4. DMII- Holding metformin, place on Lantus insulin sliding scale. A1C is 7.6. Will monitor.d/c on home meds 5. Hypertension-controlled, Continue losartan, Toprol-XL with hold parameters. 6. History of asthma, mild persistent, currently stable. Continue Advair Diskus and Ventolin p.r.n.Stable. 7. Chronic kidney disease stage III-appears to be at baseline. 8. Hyperlipidemia- statin. discharged home Vital Signs: Date Time Temp Pulse Resp B/P (MAP) Pulse Ox O2 Delivery O2 Flow Rate FiO2 06/08/17 15:16 37.1 90 18 115/66 (82) 94 Room Air 06/08/17 14:37 37.1 77 18 96 Room Air 06/08/17 07:45 Room Air 06/08/17 07:37 37.1 77 18 129/78 (95) 96 Room Air 06/07/17 23:50 Room Air 06/07/17 22:48 37.1 83 18 128/73 (91) 97 Room Air 06/07/17 21:10 37.6 06/07/17 19:53 37.9 102 18 157/75 (102) 97 Room Air 06/07/17 19:45 Room Air Lab Results: Results Past 24 Hours Test 06/07/17 21:09 06/08/17 07:57 06/08/17 08:30 Range/Units Bedside Glucose 216 140 70-90 mg/dl White Blood Count 7.22 4.8-10.8 K/uL Red Blood Count 3.67 4.2-5.4 M/uL Hemoglobin 10.0 12.0-16.0 g/dL Hematocrit 30.4 37-47 % Mean Corpuscular Volume 82.8 80-100 fL Mean Corpuscular Hemoglobin 27.2 25-34 pg Mean Corpuscular Hemoglobin Concent 32.9 32-36 g/dl Platelet Count 170 130-400 K/uL Mean Platelet Volume 9.6 7.4-10.4 fL Neutrophils (%) (Auto) 66.0 % Lymphocytes (%) (Auto) 18.0 % Monocytes (%) (Auto) 14.8 % Eosinophils (%) (Auto) 1.0 % Basophils (%) (Auto) 0.1 % Neutrophils # (Auto) 4.76 1.4-6.5 K/uL Lymphocytes # (Auto) 1.30 1.2-3.4 K/uL Monocytes # (Auto) 1.07 0.11-0.59 K/uL Eosinophils # (Auto) 0.07 0-0.5 K/uL Basophils # (Auto) 0.01 0-0.2 K/uL RDW Standard Deviation 42.8 36.4-46.3 fL RDW Coefficient of Variation 14.1 11.5-14.5 % Immature Granulocyte % (Auto) 0.1 % Immature Granulocyte # (Auto) 0.01 0.00-0.02 K/uL Sodium Level 136 136-145 mmol/L Potassium Level 3.7 3.5-5.1 mmol/L Chloride Level 104 98-107 mmol/L Carbon Dioxide Level 24 21-32 mmol/L Anion Gap 8.0 3-11 mmol/L Blood Urea Nitrogen 14 7-18 mg/dl Creatinine 0.98 0.60-1.20 mg/dl Est Creatinine Clear Calc Drug Dose 61.7 ml/min Estimated GFR () 67.7 Estimated GFR (Non- 58.4 BUN/Creatinine Ratio 14.5 10-20 Random Glucose 131 70-99 mg/dl Calcium Level 9.8 8.5-10.1 mg/dl Magnesium Level 2.2 1.8-2.4 mg/dl
--- NOTE | 2017-06-08 18:52 | Discharge Summary ---
Discharge Summary Date of Service Jun 08, 2017. Discharge Summary Admission Date: Jun 05, 2017 at 17:27 Discharge Date: Jun 08, 2017 Discharge Disposition: Home Principal Diagnosis: BACK PAIN-LUMBAR MASS UTI Secondary Diagnoses/Problems: CAD status post stent, hypertension, chronic kidney disease stage III, diabetes, hyperlipidemia, asthma mild persistent, paroxysmal supraventricular tachycardia, restless leg syndrome, GERD, anxiety, allergic rhinitis Procedures: MRI LUMBAR SPINE: 1. Apparent enhancing mass emanates from the exiting left L3 nerve root with central cystic change. This could suggest a schwannoma or other peripheral nerve sheath tumor. 2. Multilevel degenerative changes most severe at L3-4, where there is a greatest degree of spinal canal stenosis as well as moderate to severe left neural foraminal narrowing. Additional degenerative changes as above. 3. Apparent urothelial thickening, periureteral inflammatory change, and enhancement involving the right renal collecting system and right ureter to a greater degree than the left. Trace raises concern for upper tract infection. Correlate with urinalysis. PELVIC XRAY:Postsurgical changes of bilateral total hip arthroplasty. No hardware complication. No acute osseous injury. Consultations: Ortho Spine-Dr. Juárez Medication Reconciliation New Medications: Cefuroxime Axetil (Cefuroxime Axetil) 500 Mg Tab 1 TAB PO BID for 7 Days, #14 TAB Lactobacillus Acidophilus (Lactinex) Tab 2 TAB PO BID for 10 Days, TAB Continued Medications: Acetaminophen/Codeine (Tylenol W/Codeine #3) 300 Mg/30 Mg Tab 2 TAB PO Q4 PRN for Pain, TAB Albuterol Hfa (Ventolin Hfa) 200 Puffs/44713 Mcg Aers 2 PUFFS INH Q6H PRN for Cough, #1 INHALER Aspirin (Aspirin EC Low Dose) 81 Mg Ectab 81 MG PO QAM for 30 Days, #30 TABS 6 Refills Atorvastatin (Atorvastatin Calcium) 40 Mg Tab 40 MG PO DAILY for 30 Days, #30 TAB 6 Refills Clopidogrel Bisulfate (Clopidogrel) 75 Mg Tab 75 MG PO QAM for 30 Days, #30 TAB 8 Refills Cyclobenzaprine Hcl (Flexeril) 10 Mg Tab 10 MG PO TID PRN for muscle spasm, #21 TAB PRN Desonide 0.05% (Desowen 0.05%) 60 Gm Cr 1 APPLN TOP DAILY PRN for RN for 14 Days, #60 GM Duloxetine Hcl (Cymbalta) 20 Mg Cap 20 MG PO DAILY, CAP Fluticasone Prop/Salmeterol (Advair Diskus 250/50 60 Dose) 1 Ea Aerp 1 PUFFS INH BID for 90 Days, #3 INHALER 3 Refills Hydrocodone/Acetaminophen 5MG/325MG ([place] 5MG/325MG) Tab 1 TABLET PO Q6 PRN for Pain, #20 TAB (This prescription has been renewed) PRN PAIN Losartan Potassium (Cozaar) 50 Mg Tab 50 MG PO QAM, TAB Metformin Hcl (Glucophage) 1,000 Mg Tab 1000 MG PO QAM, TAB Metoprolol Succinate (Toprol Xl) 50 Mg Tabcr 50 MG PO DAILY, #30 TAB Multivitamin (Multivitamin) Tab 1 TAB PO QAM, TAB Nitroglycerin (Nitrostat) 0.4 Mg/1 Tab Subl 0.4 MG SL q5min PRN for Chest Pain for 30 Days, #1 BTL 6 Refills NS Ranitidine Hcl (Zantac) 300 Mg Tab 300 MG PO HS for 90 Days, #90 TAB 3 Refills Admission Information HPI (per Admitting provider): This is a 71-year-old female with past medical history significant for CAD status post stent, hypertension, chronic kidney disease stage III, diabetes, hyperlipidemia, asthma mild persistent, paroxysmal supraventricular tachycardia, restless leg syndrome, GERD, anxiety, allergic rhinitis, comes in because of ongoing pain in left lower extremity and also today she was having chills. The patient says she had surgery of left hip replacement in 2014 and right hip replacement in August 2015. Since surgery, left hip is always bothering her. She is having pain shooting from the left hip to her knee, is getting worse and is having difficulty ambulating and is also not sleeping because of pain and this year she dislocated her left hip twice and it was replaced back in the [facility] ER. Because of the ongoing problem with left lower extremity and having chills today, she came to the ER. In the ER, she was found to have a UTI and also had slight temp spike and also MRI of the lumbar spine was done which showed apparent mass exiting from the L3 nerve root and we were called for admission. Currently, the patient is shivering with cold. Blood pressure is stable, slightly tachycardic. She has some headache, no dizziness, no blurred vision. Denies cough, no runny nose. No sore throat, no difficulty swallowing. No chest pain, no shortness of breath, no nausea, no vomiting, no abdominal pain. Normal bowel and bladder movements. No blood in the stool and no black stools, no blood in the urine, no burning micturition. Denies any rash, no swelling in the extremities. No recent weight gain or weight loss. Appetite is okay. Physical Exam (per Admitting): GENERAL: The patient is of moderately obese and not in distress. VITAL SIGNS: Temperature T-max 38.6, pulse 98, respiratory rate 16, blood pressure 127/66, oxygen 95% on room air. HEENT: No pallor, no icterus. Pupils equal, round, and react to light. NECK: No JVD, no neck masses, no carotid bruits. CARDIOVASCULAR: S1, S2 heard. Tachycardia. No murmurs. RESPIRATORY SYSTEM: Clear to auscultation bilaterally. No accessory muscle use. No wheezing, no crackles. ABDOMEN: Soft, bowel sounds present, nontender. No distention. No CVA tenderness. MUSCULOSKELETAL: No spinal tenderness. CENTRAL NERVOUS SYSTEM: Cranial nerves II-XII grossly intact. Nonfocal. EXTREMITIES: No edema, no erythema. Hospital Course 71 yo F with UTI, left leg pain, lower back pain and numbness in thigh that had worsened. 1. UTI- was placed on iv vanco and cefepime intially for possible early sepsis. currently stable and cx growing noble sensitive e.coli. ABX changed to Rocephin today.d/c on cefuroxime 2. Lumbar spine mass-poss schwannoma or nerve sheath tumor. Ortho spine recommends seeing Neurosurgery in [place] as outpatient after discharge. Cont pain control efforts. PT/OT.f/u with neurosurgery 3. CAD s/p stent. Stable on Toprol XL, ASA, Plavix and statin. 4. DMII- Holding metformin, place on Lantus insulin sliding scale. A1C is 7.6. Will monitor.d/c on home meds 5. Hypertension-controlled, Continue losartan, Toprol-XL with hold parameters. 6. History of asthma, mild persistent, currently stable. Continue Advair Diskus and Ventolin p.r.n.Stable. 7. Chronic kidney disease stage III-appears to be at baseline. 8. Hyperlipidemia- statin. discharged home Total time spent on discharge = 35MINUTES This includes examination of the patient, discharge planning, medication reconciliation, and communication with other providers. Discharge Instructions Discharge Instructions Date of Service Jun 08, 2017. Admission Reason for Admission: Abnormal Mri,Lumbar Spine Discharge Discharge Diagnosis / Problem: uti, fEVER, lUMBAR MASS Discharge Goals Goal(s): Decrease discomfort Activity Recommendations Activity Limitations: resume your previous activity . Instructions / Follow-Up Instructions / Follow-Up FOLLOWUP WITH FAMILY DOCTOR Rafiq Santillan ON May AT 11:25AM FOLLOWUP WITH NEUROSURGERY SOON POSSIBLE FOR LUMBAR MASS WITH FAMILY DOCTOR REFERRAL. Current Hospital Diet Patient's current hospital diet: Diabetes Type 2 Diet Discharge Diet Recommended Diet: Diabetes Type 2 Diet Pending Studies Studies pending at discharge: no Laboratory Results Hemoglobin A1c Test 06/06/17 06:11 Range/Units Estimated Average Glucose 171 mg/dl Hemoglobin A1c 7.6 H 4.5-5.6 % Medical Emergencies . Who to Call and When: Medical Emergencies: If at any time you feel your situation is an emergency, please call 911 immediately. . Non-Emergent Contact Non-Emergency issues call your: Primary Care Provider . . "Provider Documentation" section prepared by Kushal Ramos. . VTE Core Measure Inpt VTE Proph given/why not?: Enoxaparin (Lovenox)SQ
== END 2017-06-08 16:16 | disposition home or self-care (01) | DRG 872 ==
LOC: EDBD 12:05 → C.EDA 12:07 → C.MSN 17:27 → ENRESERV 17:40 → C.2T 06-06 19:05 → EDBEDREQSVC 06-07 18:57 → ENRESERV 06-07 19:02 → C.MSW 06-07 19:44
PROVIDERS: ADMIT Hospitalist; ATTEND Internal Medicine
DX: A41.9 Sepsis, unspecified organism (principal); N39.0 Urinary tract infection, site not specified; B96.20 Unspecified Escherichia coli [E. coli] as the cause of diseases classified elsewhere; D36.17 Benign neoplasm of peripheral nerves and autonomic nervous system of trunk, unspecified; D49.7 Neoplasm of unspecified behavior of endocrine glands and other parts of nervous system; M54.16 Radiculopathy, lumbar region; I25.10 Atherosclerotic heart disease of native coronary artery without angina pectoris; E11.22 Type 2 diabetes mellitus with diabetic chronic kidney disease; I12.9 Hypertensive chronic kidney disease with stage 1 through stage 4 chronic kidney disease, or unspecified chronic kidney disease; N18.3 Chronic kidney disease, stage 3 (moderate); J45.30 Mild persistent asthma, uncomplicated; E78.5 Hyperlipidemia, unspecified; K21.9 Gastro-esophageal reflux disease without esophagitis; Z96.643 Presence of artificial hip joint, bilateral; Z95.5 Presence of coronary angioplasty implant and graft; Z86.79 Personal history of other diseases of the circulatory system; Z87.891 Personal history of nicotine dependence; Z79.02 Long term (current) use of antithrombotics/antiplatelets; Z79.1 Long term (current) use of non-steroidal anti-inflammatories (NSAID); Z79.82 Long term (current) use of aspirin; Z79.84 Long term (current) use of oral hypoglycemic drugs; Z79.899 Other long term (current) drug therapy; Z91.040 Latex allergy status; Z88.2 Allergy status to sulfonamides; Z83.3 Family history of diabetes mellitus; Z82.49 Family history of ischemic heart disease and other diseases of the circulatory system

== ENCOUNTER 2017-06-14 11:06 | Emergency (ER) | payer OTHER ==
[~2017-06-14] VITALS: Ht 182.9 cm; Wt 82.3 kg
[~2017-06-14 11:06] MED LIST changes: +ACET-749 PO; +CEFU1TAB36 PO; +DULO-24 PO; +HYDR-5688 PO; +LCTX PO; -OXYC1TAB3 PO; -SERT1TAB68 PO
[2017-06-14 11:16] VITALS: TEMP 36.8; Ht 182.9 cm; Wt 82.3 kg
[2017-06-14] MEDS ORDERED: SERT25TA PO (11:43)
[2017-06-14] MEDS ORDERED: MoRPHine SULFATE 10 MG/ML CARP/VIAL IV STA (12:31)
[2017-06-14] MEDS ORDERED: ONDANSETRON INJ 2 MG/ML 2 ML VIAL IV STA (12:31)
--- NOTE | 2017-06-14 12:32 | EMERGENCY ROOM VISIT NOTE ---
History Report prepared by Jaida: John Polo Under the Supervision of: Dr. Crescencio Hawkins M.D. First contact with patient: 12:02 Chief Complaint: BACK PAIN Stated Complaint: BACK PAIN History of Present Illness The patient is a 71 year old white female with a past medical history of CAD, CKD, diabetes, hypertension, hyperlipidemia who presents to the ED with a cc of worsening lower back pain beginning around 8 hours ago. Positive left hip pain, left hip decreased sensation, foot coldness, left foot decreased sensation. Negative bladder or bowel incontinence, recent falls. She states that she dislocated her left hip 2 weeks ago, and ever since then there has been pain, which has worsened recently. The patient says that the pain is in her lower back and shoots around the crest of her left hip. She describes her current pain as "crushing. The patient adds that she was here 9 days ago and had a UTI, and had an MRI at that time. She takes Aspirin and Plavix daily. Source of History: patient, spouse/significant other Onset: Around 8 hours ago Position: back (lower) Symptom Intensity: recent left hip dislocation Quality: other (crushing) Timing: worsening Associated Symptoms: + numbness (left hip, foot, decreased sensation) Note: Associated symptoms: Left hip pain. Foot coldness. Negative bladder or bowel incontinence. Review of Systems See HPI for pertinent positives and negatives. A total of ten systems were reviewed and were otherwise negative. Past Medical & Surgical Medical Problems: (1) Allergic rhinitis (2) Anxiety (3) Arthritis of right hip (4) Asthma (5) CAD (coronary artery disease) (6) CKD (chronic kidney disease), stage III (7) DM type 2 (diabetes mellitus, type 2) (8) Dyslipidemia (9) Hip dislocation, left (10) HTN (hypertension) (11) Restless leg syndrome (12) UTI (urinary tract infection) Surgical Problems: (1) History of cardiac cath (2) S/p lumbar hemilaminectomy (3) S/P nasal septoplasty (4) S/p repair of radial fracture (5) Status post bilateral total hip replacement Family History Diabetes mellitus FATHER MOTHER BROTHER SISTER FH: HTN (hypertension) FH: cancer FH: heart disease BROTHER FH: kidney disease Social History Smoking Status: Never Smoker Alcohol Use: occasionally Drug Use: none Marital Status: Housing Status: lives with family Occupation Status: retired Current/Historical Medications Scheduled Aspirin (Aspirin EC Low Dose), 81 MG PO QAM Atorvastatin (Atorvastatin Calcium), 40 MG PO DAILY Cefuroxime Axetil (Cefuroxime Axetil), 1 TAB PO BID Clopidogrel Bisulfate (Clopidogrel), 75 MG PO QAM Fluticasone Prop/Salmeterol (Advair Diskus 250/50 60 Dose), 1 PUFFS INH BID Lactobacillus Acidophilus (Lactinex), 2 TAB PO BID Losartan Potassium (Cozaar), 50 MG PO QAM Metformin Hcl (Glucophage), 1,000 MG PO QAM Methylprednisolone (Medrol), 1 PKT PO UD Metoprolol Succinate (Toprol Xl), 50 MG PO DAILY Multivitamin (Multivitamin), 1 TAB PO QAM Ranitidine Hcl (Zantac), 300 MG PO HS Sertraline (Zoloft), 1 TAB PO DAILY Scheduled PRN Acetaminophen W/ Codeine (Tylenol W/Codeine #3), 1 TAB PO Q6H PRN for Pain Acetaminophen/Codeine (Tylenol W/Codeine #3), 2 TAB PO Q4 PRN for Pain Albuterol Hfa (Ventolin Hfa), 2 PUFFS INH Q6H PRN for Cough Cyclobenzaprine Hcl (Flexeril), 10 MG PO TID PRN for muscle spasm Desonide 0.05% (Desowen 0.05%), 1 APPLN TOP DAILY PRN for RN Hydrocodone/Acetaminophen 5MG/325MG ([place] 5MG/325MG), 1 TABLET PO Q6 PRN for Pain Nitroglycerin (Nitrostat), 0.4 MG SL q5min PRN for Chest Pain Tramadol (Ultram), 50 MG PO Q8H PRN for Pain Allergies Coded Allergies: Grass (Verified Allergy, Unknown, GRASS TREES, SOB AGGREVATES ASTHMA, ) Latex (Verified Allergy, Unknown, ITCHING FROM LATEX BALLOON PLACED IN NOSE FROM NOSEBLEED, 06/14/17) Atorvastatin (Unverified Adverse Reaction, Mild, JOINT AND MUSCLE ACHES, 06/14/17) Naloxone (Verified Adverse Reaction, Unknown, DIZZINESS, 06/14/17) Pentazocine (Unverified Adverse Reaction, Unknown, DIZZINESS, 06/14/17) Pioglitazone (Verified Adverse Reaction, Unknown, RAPID WEIGHT GAIN, 06/14) Physical Exam Vital Signs Date Time Temp Pulse Resp B/P (MAP) Pulse Ox O2 Delivery O2 Flow Rate FiO2 06/14/17 16:58 77 16 145/86 100 06/14/17 16:37 77 16 145/86 100 Room Air 06/14/17 14:33 80 18 137/83 99 Room Air 06/14/17 12:57 90 20 130/58 99 Room Air 06/14/17 12:55 99 Room Air 06/14/17 12:51 96 06/14/17 11:16 36.8 98 20 145/97 100 Room Air Physical Exam GENERAL: Awake, alert, well-appearing, NAD HENT: Normocephalic, atraumatic. EYES: Normal conjunctiva. Sclera non-icteric. NECK: Supple. No nuchal rigidity. FROM. RESPIRATORY: CTAB, no rhonchi, wheezing, crackles CARDIAC: RRR, no MRG ABDOMEN: Soft, NTND, BS+ MSK: No chest wall TTP, no LE edema. Lower left paraspinal tenderness, midline incisional scar over lumbar spine. Some subjective decreased sensation in left lower extremity. 4/5 with hip flexion and knee flexion. NEURO: GCS 15, CN 2-12 intact, moves all 4s on command. SKIN: No rash or jaundice noted. Medical Decision & Procedures ER Provider Diagnostic Interpretation: CT: Radiology results as stated below per my review and radiologist interpretation CT SCAN OF THE LUMBAR SPINE WITHOUT IV CONTRAST CLINICAL HISTORY: Increasing back pain. COMPARISON STUDY: MRI of the lumbar spine dated 06/05/2017. TECHNIQUE: CT scan of the lumbar spine is performed from the lower thoracic spine to the sacrum. Images are reviewed in the axial, sagittal, and coronal planes. IV contrast was not administered for this examination. A dose lowering technique was utilized adhering to the principles of ALARA. CT DOSE: 620.05 mGycm FINDINGS: The skeletal structures are osteopenic. There is no evidence of fracture or malalignment involving the lumbar spine. Vertebral body height and alignment are maintained. There is straightening of the lumbar lordosis. The transverse and spinous processes appear intact. There is no evidence of spondylolysis. Advanced facet arthropathy is seen in the lower lumbar region. Small anterior osteophytes are seen throughout. There is advanced disc space narrowing at L4-L5. Only mild disc space narrowing is seen at the remaining lumbar levels. There are small posterior discussed by complex is seen at L3-L4, L4-L5, and L5-S1. No high-grade central canal stenosis is seen by CT. There is a 1.6 x 1.1 cm indeterminant soft tissue attenuation structure identified filling the left neural foramen at L3-L4. When correlated with the recent MRI this likely represents a small mass lesion such as a schwannoma or neurofibroma. No additional similar-appearing mass lesion is suggested. The visualized sacrum and bony pelvis appear intact. There is fatty atrophy of the paraspinous musculature. The partially imaged retroperitoneal structures are grossly unremarkable. There is atherosclerotic calcification of the abdominal aorta. IMPRESSION: 1. No acute bony abnormality is seen involving the lumbar spine. 2. Osteopenia and spondylotic change as above. 3. There is a 1.6 x 1.1 cm indeterminant soft tissue attenuation structure filling the left neural foramen at L3-L4. 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 This was much better characterized on the recent MRI. Electronically signed by: Erickson Arrieta M.D. 06/14/2017 1:37 PM Dictated Date/Time: 06/14/2017 1:19 PM Laboratory Results 06/14/17 12:50 Red Blood Count 4.89, Mean Corpuscular Volume 80.8, Mean Corpuscular Hemoglobin 26.4, Mean Corpuscular Hemoglobin Concent 32.7, Mean Platelet Volume 9.4, Neutrophils (%) (Auto) 67.2, Lymphocytes (%) (Auto) 24.7, Monocytes (%) (Auto) 6.0, Eosinophils (%) (Auto) 0.9, Basophils (%) (Auto) 0.3, Neutrophils # (Auto) 6.28, Lymphocytes # (Auto) 2.31, Monocytes # (Auto) 0.56, Eosinophils # (Auto) 0.08, Basophils # (Auto) 0.03 06/14/17 12:50 Test 06/14/17 12:50 White Blood Count 9.34 K/uL (4.8-10.8) Red Blood Count 4.89 M/uL (4.2-5.4) Hemoglobin 12.9 g/dL (12.0-16.0) Hematocrit 39.5 % (37-47) Mean Corpuscular Volume 80.8 fL (80-100) Mean Corpuscular Hemoglobin 26.4 pg (25-34) Mean Corpuscular Hemoglobin Concent 32.7 g/dl (32-36) Platelet Count 334 K/uL (130-400) Mean Platelet Volume 9.4 fL (7.4-10.4) Neutrophils (%) (Auto) 67.2 % Lymphocytes (%) (Auto) 24.7 % Monocytes (%) (Auto) 6.0 % Eosinophils (%) (Auto) 0.9 % Basophils (%) (Auto) 0.3 % Neutrophils # (Auto) 6.28 K/uL (1.4-6.5) Lymphocytes # (Auto) 2.31 K/uL (1.2-3.4) Monocytes # (Auto) 0.56 K/uL (0.11-0.59) Eosinophils # (Auto) 0.08 K/uL (0-0.5) Basophils # (Auto) 0.03 K/uL (0-0.2) RDW Standard Deviation 39.7 fL (36.4-46.3) RDW Coefficient of Variation 13.5 % (11.5-14.5) Immature Granulocyte % (Auto) 0.9 % Immature Granulocyte # (Auto) 0.08 K/uL (0.00-0.02) Prothrombin Time 10.4 SECONDS (9.0-12.0) Prothromb Time International Ratio 1.0 (0.9-1.1) Activated Partial Thromboplast Time 27.4 SECONDS (21.0-31.0) Partial Thromboplastin Ratio 1.1 Anion Gap 6.0 mmol/L (3-11) Est Creatinine Clear Calc Drug Dose 53.0 ml/min Estimated GFR () 56.4 Estimated GFR (Non- 48.7 BUN/Creatinine Ratio 14.0 (10-20) Calcium Level 10.9 mg/dl (8.5-10.1) Laboratory results reviewed by me Medications Administered Medications (Trade) Dose Ordered Sig/Duong Route Start Time Stop Time Status Last Admin Dose Admin Ondansetron HCl (Zofran Inj) 4 mg NOW STAT IV 06/14/17 12:31 06/14/17 12:33 DC 06/14/17 12:57 4 MG Morphine Sulfate (MoRPHine SULFATE INJ) 8 mg NOW STAT IV 06/14/17 12:31 06/14/17 12:33 DC 06/14/17 12:57 8 MG Acetaminophen/ Codeine Phosphate (Tylenol w/ Codeine #3 Tab) 2 tab NOW ONCE PO 06/14/17 12:45 06/14/17 12:46 DC 06/14/17 12:57 2 TAB Dexamethasone Sodium Phosphate 10 mg/Syringe 2.5 ml @ 1 mls/min ONE STAT IV 06/14/17 12:34 06/14/17 12:36 DC 06/14/17 13:06 1 MLS/MIN ED Course 1222: The patient was evaluated in room C5. A complete history and physical exam was performed. 1324: I reevaluated the patient and she is resting. Case management will come see the patient. 1355: I reevaluated the patient and she feels way better. 1640: I reevaluated the patient and she is resting comfortably. Discussed results and discharge instructions: she verbalized understanding and agreement. The patient is ready for discharge. Medical Decision The patient is a 71 year old white female with a past medical history of CAD, CKD, diabetes, hypertension, hyperlipidemia who presents to the ED with a cc of worsening lower back pain beginning around 8 hours ago. Positive left hip pain, left hip decreased sensation, foot coldness, left foot decreased sensation. Negative bladder or bowel incontinence, recent falls. Differential diagnosis: Etiologies such as musculoskeletal, disc herniation, fracture, aortic disease, metastatic disease, cord compression, discitis, infection, renal colic, gastrointestinal, acute exacerbation of chronic back pain, sciatica, cauda equina, as well as others were entertained. Patient was seen and evaluated the bedside. Patient does have multiple medical comorbidities and does have complaints of left sided back pain with sciatica- type symptoms. Patient does feel fairly uncomfortable. Patient was recently admitted and discharged on the . Patient does have some questionable sensory changes and potentially some increased weakness of the left lower extremity. Patient patient does have a known history of an L3 mass that she is post follow-up neurosurgery. Patient states that this has been ongoing. Unsure as to whether not this is acute on chronic or more pain related. Patient otherwise is very well-appearing. Patient has no saddle anesthesia and has no history of bad bladder or bowel incontinence. Patient was given pain medication did have blood work completed. Patient's blood work was fairly unremarkable. Patient did not have an elevated white count. Upon reassessment of the patient the patient was feeling much improved. CT noncontrast did show a likely mass in a similar place consistent with her prior MRI. Patient's symptoms had improved. I did discuss with the patient possible rehabilitation. The family is concerned as she has had persistent pain issues. Patient was evaluated for rehabilitation with PT and OT. I did discuss with the nurse case manager to help with arranging a follow-up appointment with neurosurgery that she will likely need a possible procedure for this mass that is causing her symptoms. A follow-up appointment was arranged. I did discuss with the patient that we would not be able to transfer the patient. The patient's symptoms had improved. Her strength had improved. Patient was able to ambulate. Patient's pain was essentially relieved. Patient was given pain medications. Patient was told she will need to follow-up in neurosurgery appointment. Patient was told that if she is not able to ambulate has any saddle anesthesia or bowel or bladder incontinence or retention she should return for further evaluation which she does not have at this time and I do not believe that she requires acute surgical or medical intervention. Patient was given strict follow-up, discharge, and return precautions. All questions were answered. Patient was deemed suitable for outpatient follow-up at this time. Patient agreed with the plan of care and was safely discharged home. Medication Reconcilliation Current Medication List: was personally reviewed by me Blood Pressure Screening Patient's blood pressure: Normal blood pressure Impression Primary Impression: Sciatica Scribe Attestation The scribe's documentation has been prepared under my direction and personally reviewed by me in its entirety. I confirm that the note above accurately reflects all work, treatment, procedures, and medical decision making performed by me. Departure Information Dispostion Home / Self-Care Prescriptions Acetaminophen W/ Codeine (TYLENOL W/CODEINE #3) 1 Tab Tab 1 TAB PO Q6H Y for Pain for 7 Days, #30 TAB Prov: Crescencio Hawkins M.D. 06/14/17 Tramadol (Ultram) 50 Mg Tab 50 MG PO Q8H Y for Pain, #15 TAB Prov: Crescencio Hawkins M.D. 06/14/17 Methylprednisolone (MEDROL) 4 Mg Tab 1 PKT PO UD for 6 Days, #1 PKT Prov: Crescencio Hawkins M.D. 06/14/17 Referrals Rafiq Mckeon M.D.(FERMIN) (PCP) Patient Instructions Back Pain - [facility], Back Pain Relieve, [facility] Additional Instructions Please return to the emergency department if you have worsening or recurrent symptoms not amenable to at-home treatment. Please call for a follow-up appointment with her primary care physician. Please take your medications as prescribed. If you have other concerns and/or complaints please feel free to also call your primary care physician's office or return the ED for further evaluation, management, and treatment. You were found to have an elevated blood pressure today (>120 sytolic or >90 diastolic). Per medicare guidelines, you need to follow up with this blood pressure screening with your Primary Care Physician (PCP). For a new PCP call [phone]. You received narcotic or benzodiazepene medication while in the emergency room today. This is an addictive medication that may cause drowziness as well as constipation. Do not drive, operate heavy machinery, or drink alcohol under the influence of this medication. You may take tylenol 1000 mg every 6 hours as needed for pain. Please keep in mind that this is inclusive of the Tylenol 3 that you may take. Take your medications as prescribed. You have been examined and treated today on an emergency basis only. This is not a substitute for, or an effort to provide, complete comprehensive medical care. It is impossible to recognize and treat all injuries or illnesses in a single emergency department visit. It is therefore important that you follow up closely with [facility], your PCP, and/or your specialist(s). Call as soon as possible for an appointment. Thank you for your time and consideration. I look forward to speaking with you again soon. Please don't hesitate to call us if you have any questions. Problem Qualifiers Primary Impression: Sciatica Laterality: left Qualified Codes: M54.32 - Sciatica, left side
[2017-06-14] MEDS ORDERED: DEXAMETHASONE INJ 10 MG in SYRINGE 0 ML IV STA (12:34)
[2017-06-14] MEDS ORDERED: ACETAMINOPHEN/CODEINE 300/30MG TAB PO ONE (12:45)
[2017-06-14 12:55] VITALS: O2SAT 99
[2017-06-14 13:10] LABS: BASO % 0.3 %; BASO ABS # 0.03 K/uL (0-0.2); COMPLETE YES; EOS % 0.9 %; HEMATOCRIT 39.5 % (37-47); IG% 0.9 %; LYMPH % 24.7 %; LYMPH ABS # 2.31 K/uL (1.2-3.4); MEAN CELL VOLUME 80.8 fL (80-100); MEAN CORPUSCULAR HEMOGLOBIN 26.4 pg (25-34); MEAN CORPUSCULAR HGB CONC 32.7 g/dl (32-36); MEAN PLATELET VOLUME 9.4 fL (7.4-10.4); NEUT % 67.2 %; PLATELET COUNT 334 K/uL (130-400); RED BLOOD COUNT 4.89 M/uL (4.2-5.4); WHITE BLOOD COUNT 9.34 K/uL (4.8-10.8)
[2017-06-14 13:19] LABS: PARTIAL THROMBOPLASTIN RATIO 1.1; PROTHROMBIN TIME (PATIENT) 10.4 SECONDS (9.0-12.0)
[2017-06-14 13:28] LABS: CALCIUM 10.9 mg/dl (8.5-10.1); CREATININE 1.14 mg/dl (0.60-1.20); POTASSIUM 4.7 mmol/L (3.5-5.1)
--- NOTE | 2017-06-14 13:38 | DIAGNOSTIC IMAGING REPORT ---
CT SCAN OF THE LUMBAR SPINE WITHOUT IV CONTRAST CLINICAL HISTORY: Increasing back pain. COMPARISON STUDY: MRI of the lumbar spine dated 06/05/2017. TECHNIQUE: CT scan of the lumbar spine is performed from the lower thoracic spine to the sacrum. Images are reviewed in the axial, sagittal, and coronal planes. IV contrast was not administered for this examination. A dose lowering technique was utilized adhering to the principles of ALARA. CT DOSE: 620.05 mGycm FINDINGS: The skeletal structures are osteopenic. There is no evidence of fracture or malalignment involving the lumbar spine. Vertebral body height and alignment are maintained. There is straightening of the lumbar lordosis. The transverse and spinous processes appear intact. There is no evidence of spondylolysis. Advanced facet arthropathy is seen in the lower lumbar region. Small anterior osteophytes are seen throughout. There is advanced disc space narrowing at L4-L5. Only mild disc space narrowing is seen at the remaining lumbar levels. There are small posterior discussed by complex is seen at L3-L4, L4-L5, and L5-S1. No high-grade central canal stenosis is seen by CT. There is a 1.6 x 1.1 cm indeterminant soft tissue attenuation structure identified filling the left neural foramen at L3-L4. When correlated with the recent MRI this likely represents a small mass lesion such as a schwannoma or neurofibroma. No additional similar-appearing mass lesion is suggested. The visualized sacrum and bony pelvis appear intact. There is fatty atrophy of the paraspinous musculature. The partially imaged retroperitoneal structures are grossly unremarkable. There is atherosclerotic calcification of the abdominal aorta. IMPRESSION: 1. No acute bony abnormality is seen involving the lumbar spine. 2. Osteopenia and spondylotic change as above. 3. There is a 1.6 x 1.1 cm indeterminant soft tissue attenuation structure filling the left neural foramen at L3-L4. 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 This was much better characterized on the recent MRI. Electronically signed by: Erickson Arrieta M.D. 06/14/2017 1:37 PM Dictated Date/Time: 06/14/2017 1:19 PM
[2017-06-14] MEDS ORDERED: METH4TAB31 PO (16:40)
[2017-06-14] MEDS ORDERED: ACET-1101 PO (16:40)
[2017-06-14] MEDS ORDERED: TRAM-10 PO (16:40)
[2017-06-14 16:58] VITALS: BP 145/86; PULSE 77; O2SAT 100
== END 2017-06-14 17:02 | disposition home or self-care (01) ==
LOC: EDBD 11:06 → C.EDC 11:07
DX: M54.32 Sciatica, left side (principal); D49.2 Neoplasm of unspecified behavior of bone, soft tissue, and skin; I25.10 Atherosclerotic heart disease of native coronary artery without angina pectoris; E11.22 Type 2 diabetes mellitus with diabetic chronic kidney disease; N18.3 Chronic kidney disease, stage 3 (moderate); I12.9 Hypertensive chronic kidney disease with stage 1 through stage 4 chronic kidney disease, or unspecified chronic kidney disease; E78.5 Hyperlipidemia, unspecified; F41.9 Anxiety disorder, unspecified; J45.909 Unspecified asthma, uncomplicated; M16.11 Unilateral primary osteoarthritis, right hip; J30.9 Allergic rhinitis, unspecified; G25.81 Restless legs syndrome; Z79.01 Long term (current) use of anticoagulants; Z79.82 Long term (current) use of aspirin; Z79.84 Long term (current) use of oral hypoglycemic drugs; Z96.643 Presence of artificial hip joint, bilateral; Z83.3 Family history of diabetes mellitus; Z82.49 Family history of ischemic heart disease and other diseases of the circulatory system